=== PATIENT | male | born 1940 | race Caucasian/White ===

== ENCOUNTER 2016-06-08 12:09 | Emergency (ER) | payer OTHER ==
[~2016-06-08] VITALS: Ht 177.8 cm; Wt 106.1 kg
[~2016-06-08 12:09] MED LIST: ALBUTEROL0.09 MG/A1 INH; AMLODIPINE BESY10 M1 PO; ATENOLOL100 M1 PO; B-12500 MC1 PO; BENADRYL ALLERG25 MG PO; CHILDREN'S ASPI81 M1 PO; DUONEB 3 MG/3 ML3 ML INH; FOLIC ACID0.4 MG PO; KEFLEX500 MG PO; LIPITOR20 M2 PO; LISINOPRIL40 M1 PO; PEPCID 20MG TAB20 MG PO; PEPCID20 MG PO; PREDNICOT20 MG PO; PREDNISONE 10MG10 M1 PO; PREDNISONE 20MG20 MG PO; PREDNISONE50 MG PO; PYRIDOXINE HCL100 M1 PO; ROBITUSSIN W/CO10 ML PO; TESSALON PERLE100 MG PO; ZITHROMAX Z-PA250 M1 PO
--- NOTE | 2016-06-08 12:31 | ED GI/GU/ABDOMINAL COMPLAINT ---
History of Present Illness General Chief Complaint: Abdominal Pain/Flank Pain Stated Complaint: MID ABD PAIN Source: patient, old records Exam Limitations: no limitations Allergies Coded Allergies: NO KNOWN ALLERGIES (09/11/13) Reconcile Medications Albuterol Sulfate (Proair Hfa) 90 MCG HFA.AER.AD 2 PUF INH Q4-6 PRN PRN COPD (Reported) Amlodipine Besylate 10 MG TABLET 1 TAB PO DAILY HEART (Reported) Aspirin (Children's Aspirin) 81 MG TAB.CHEW 2 TAB PO DAILY HEART HEALTH ( Reported) Atenolol 100 MG TABLET 1 TAB PO DAILY HEART (Reported) Atorvastatin Calcium (Lipitor) 20 MG TABLET 1 TAB PO DAILY CHOLESTEROL ( Reported) Budesonide/Formoterol Fumarate (Symbicort 80-4.5 Mcg Inhaler) 80 MCG-4.5 MCG/ ACTUATION HFA.AER.AD 2 PUF INH BID BREATHING PROBLEMS (Reported) Cyanocobalamin (Vitamin B-12) (B-12) 500 MCG TABLET 1 TAB PO DAILY SUPPLEMENT (Reported) Doxazosin Mesylate 1 MG TABLET 1 TAB PO DAILY UNKNOWN (Reported) Famotidine (Pepcid) 20 MG TABLET 1 TAB PO DAILY GASTRITIS Ipratropium/Albuterol Sulfate (Iprat-Albut 0.5-3(2.5) MG/3 Ml) 0.5 MG-3 MG (2.5 MG BASE)/3 ML AMPUL.NEB 1 VIAL INH Q6-PRN PRN COPD (Reported) Lisinopril 40 MG TABLET 1 TAB PO DAILY HEART (Reported) Pyridoxine HCl 100 MG TABLET 1 TAB PO DAILY SUPPLEMENT (Reported) Triage Note: PT TO ED C/O BURNING PAIN TO ABD X A FEW DAYS. DENIES N/V/D. PT STATES HE MADE HIMSELF VOMIT. DENIES S/S. POOR PO INTAKE. Triage Nurses Notes Reviewed? yes Onset: Abrupt Duration: day(s): (4), constant, waxing and waning Timing: recent history Quality/Severity: aching, burning Severity Numbers: 5 Location: epigastric Radiation: no radiation Activities at Onset: none Prior Abdominal Problems: similar symptoms Modifying Factors: Worsens With: eating. Associated Symptoms: DENIES HPI: 75-year-old male with history of COPD coronary artery disease CABG presents to emergency room complaining of 4 day history of epigastric nonradiating abdominal pain described as burning that was gradual onset and has been constant since. He reports to a poor appetite since the symptoms began and he states that he had a slice of pizza last night which made his pain worse and he forced himself to throw up. He denies any otherwise nausea vomiting or change in his bowel movements no black or bloody stools. He reports he's had a history of similar episodes in the past at which time his primary care physician told him to limit fatty spicy greasy foods and soda intake which she did and the symptoms resolved. The patient quit smoking one year ago, he denies alcohol or drug use no chest pain shortness of breath area did the patient is not on home O2 he denies cough congestion fever chills he is not on prednisone currently. No sick contacts (BARRETT CAGLE) Vital Signs & Intake/Output Vital Signs & Intake/Output Vital Signs Date Time Temp Pulse Resp B/P Pulse O2 O2 Flow FiO2 Ox Delivery Rate 06/08 1415 55 18 130/63 92 Room Air 06/08 1340 98 Room Air 06/08 1215 96.9 61 20 128/77 96 Room Air Past History Travel History Traveled to [place] past 21 day No Medical History Any Pertinent Medical History? see below for history Cardiovascular: CAD, hypertension, hyperlipidemia Respiratory: COPD Surgical History Surgical History: CABG, hernia repair-inguinal Psychosocial History What is your primary language Montserratian Tobacco Use: Quit >30 days ago ETOH Use: denies use Illicit Drug Use: denies illicit drug use Family History Hx Contributory? No (BARRETT CAGLE) Review of Systems Review of Systems Constitutional: Reports: see HPI. All Other Systems: Reviewed and Negative Comments Review of systems: See HPI, All other systems negative. Constitutional, no chills no fever, no malaise HEENT:no sore throat no congestion, no ear pain Cardiovascular: No chest pain , no palpitation , Skin, no jaundice no rashes, no change in skin Respiratory: No dyspnea no cough no sputum no hemoptysis GI: No nausea no vomiting, no diarrhea, no bloating/constipation : No dysuria No hematuria, no frequency, no discharge Muscle skeletal: No joint pain, no joint swelling, no back pain, no neck pain, Neurologic: No numbness no headache Psych: No stress Heme/endocrine: No bruising no bleeding Immunology: No lymphadenopathy (BARRETT CAGLE) Physical Exam Physical Exam General Appearance: well developed/nourished, alert, awake Gastrointestinal: soft, non-tender Comments: Well-developed well-nourished person in no acute distress HEENT: Normal EENT exam; PERRL, EOMI. HEAD is atraumatic. moist mucous membranes. Neck: Supple, normal range of motion Back: Nontender, no CVA tenderness. Full range of motion Cardiovascular: Regular rate and rhythms no murmurs rubs or gallops, normal JVP Respiratory: Chest nontender.There were no bony deformities, no asymmetry. No respiratory distress. Patient speaking in full complete sentences. Breath sounds clear to auscultation bilaterally: NO W/R/R Abdomen: Soft, tenderness to palpation of the epigastrium, there is negative Santana sign no right upper quadrant tenderness nondistended, no appreciable organomegaly. Normal bowel sounds. No rebound/guarding, No appreciable enlargement of the abdominal aorta, No ascites. Extremity: No edema, full range of motion of extremities Neuro: Alert oriented x3, motor sensory normal, There were no obvious focal neurologic abnormalities. Skin: No appreciable rash on exposed skin, skin is warm and dry. No jaundice Psych: Mood and affect is normal, memory and judgment is normal. Core Measures ACS in differential dx? Yes Severe Sepsis Present: No Septic Shock Present: No (PAULINE PARISI,BARRETT) Progress Differential Diagnosis: AAA, AMI, appendicitis, bowel obstruction, colon cancer, cholecystitis, diverticulitis, gastritis, hepatitis, hernia, ischemic bowel, inflamm bowel dis, pancreatitis, peptic ulcer, PUD/GERD, perforated viscous, SBO Diagnostic Imaging: Viewed by Me: CT Scan. Discussed w/RAD: CT Scan. Radiology Impression: PATIENT: LUL NORMAN PRESENT AGE: 75 PATIENT ACCOUNT NO: [id number] : 41 LOCATION: [facility] ORDERING PHYSICIAN: BARRETT PARISI SERVICE DATE: 06/08/16 EXAM TYPE: CAT - CT ABD & PELVIS W/O IV CONTRAS EXAMINATION: CT ABDOMEN AND PELVIS WITHOUT CONTRAST CLINICAL INFORMATION: 75-year-old male with epigastric abdominal pain. Chronic renal disease. Evaluate pancreatitis and cholelithiasis. COMPARISON: Renal ultrasound, 03/10/2016. TECHNIQUE: Multidetector volumetric imaging was performed from the superior aspect of the liver through the pubic symphysis. Sagittal and coronal reformatted images were obtained on the technologist's workstation. DLP: 821 mGy-cm FINDINGS: LUNG BASES: No acute findings within the lung bases. Coronary arteries are calcified. No pericardial or pleural effusion. There is a small sliding-type hiatal hernia. LIVER, GALLBLADDER, AND BILIARY TREE: The liver is normal in size, shape, and attenuation. No focal hepatic lesion or biliary ductal dilatation. The gallbladder is physiologically distended and probably has a small, 3 mm calculus (image 213, series 3). No gallbladder wall edema or pericholecystic inflammatory change. PANCREAS: Unremarkable. SPLEEN: Unremarkable. ADRENAL GLANDS: Unremarkable. KIDNEYS AND URETERS: There is cystic renal disease. Innumerable bilateral cortical cysts are present and the majority of these appear hyperdense, consistent with proteinaceous and/or hemorrhagic cysts. Largest lesion of the right kidney measures up to 3 cm maximum dimension and the largest lesion of the left kidney measures up to 2.3 cm maximum dimension. On these noncontrast images, it is impossible to exclude an underlying solid renal mass. However, no solid renal masses were detected on the renal ultrasound exam of 03/10/2016. There is a 0.9 cm calyceal stone within the lower pole of the right kidney. Also, renal vascular calcifications are seen. No hydroureteronephrosis. BLADDER: Urinary bladder is nearly completely empty and, therefore, its wall is suboptimally evaluated. The bladder wall appears circumferentially thickened and measures up to approximately 1.4 cm thick -- possibly from detrusor muscle hypertrophy. No bladder diverticulum or calculus. GASTROINTESTINAL TRACT: Small sliding-type hiatal hernia. Bowel loops are normal in caliber. There are colonic diverticula, most numerous along the descending and sigmoid colon, without diverticulitis. The appendix is normal. No ascites or pneumoperitoneum. ABDOMINAL WALL: There is minimal protrusion of fat into the umbilicus. Also, there is minimal protrusion of fat into each inguinal canal. No significant findings in the abdominal wall. LYMPH NODES: No pathologic sized lymph nodes within the abdomen or pelvis. VASCULAR: Atherosclerotic calcification of the abdominal aorta - and its branches - without aneurysm. The calcified plaque of the proximal right renal artery apparently produce [id number] luminal stenosis. PELVIC VISCERA: Prostate gland is normal in size. No pelvic free fluid. OSSEOUS STRUCTURES: No suspicious lesions within the degenerated spine. At L5-S1, there is severe degenerative disc disease as manifest by marked loss of disc space, vacuum disc phenomenon, endplate sclerosis, disc bulge and osteophyte formation. These findings, combined with the facet hypertrophy, produce [id number] central canal and bilateral neural foraminal stenosis at L5-S1. IMPRESSION: 1. No imaging evidence of acute pancreatitis or cholecystitis. 2. Renal cystic disease. Innumerable bilateral cortical cysts, majority hyperdense, compatible with proteinaceous/hemorrhagic cysts. 3. Nonobstructing 0.9 cm calyceal stone within the lower pole of the right kidney. The urinary bladder is suboptimally evaluated due to lack of distention. No bladder calculi. 4. Colonic diverticulosis without diverticulitis. DICTATED BY: CRISPIN SARKAR MD DATE/TIME DICTATED:06/08/161344 LABORATORY MANAGER:ANDRESSA DATE/TIME TRANSCRIBED:1344 CONFIDENTIAL, DO NOT COPY WITHOUT APPROPRIATE AUTHORIZATION. < Electronically signed in Other Vendor System> SIGNED BY: CRISPIN SARKAR MD 06/08/16 1405 Initial ED EKG: normal intervals, normal p-waves, normal QRS complex, normal sinus rhythm (80) Prior EKG: unchanged Rhythm Strip: normal sinus rhythm (BARRETT CAGLE) Plan of Care: Orders Procedure Date/time Status Add-on Test (ER Only) 06/08 1314 Active Add-on Test (ER Only) 06/08 1243 Active TROPONIN LEVEL 06/08 1230 Complete LIPASE 06/08 1230 Complete LACTIC ACID 06/08 1230 Complete AMYLASE 06/08 1230 Complete EKG 06/08 1229 Active COMPREHENSIVE METABOLIC PANEL 06/08 1223 Complete CBC WITHOUT DIFFERENTIAL 06/08 1223 Complete Laboratory Tests 06/08/16 1230: Lactic Acid 1.7 06/08/16 1230: Anion Gap 11, Estimated GFR 31 L, BUN/Creatinine Ratio 10.0, Glucose 159 H, Calcium 11.6 H, Total Bilirubin 1.0, AST 27, ALT 45, Alkaline Phosphatase 69, Troponin I < 0.01, Total Protein 6.9, Albumin 4.2, Globulin 2.7, Albumin/ Globulin Ratio 1.6, Amylase 75, Lipase 101, CBC w Diff NO MAN DIFF REQ, RBC 3.94 L, MCV 87.8, MCH 30.4, RDW 14.0, MPV 7.4, Gran % 71.0, Lymphocytes % 17.6 L, Monocytes % 8.7, Eosinophils % 2.1, Basophils % 0.6, Absolute Granulocytes 5.2, Absolute Lymphocytes 1.3, Absolute Monocytes 0.6, Absolute Eosinophils 0.2, Absolute Basophils 0, PUBS MCHC 34.6 Labs ordered old records reviewed patient medicated with GI cocktail Pepcid 20 mg IV CAT scan ordered case discussed with Dr. Manzano Patient's creatinine is at baseline dating back to December 2015 06/08/2016 2:21:30 PM I discussed with the patient and his family at least all of his lab results including his elevated calcium creatinine and CAT scan results. The patient states that he is being seen by a air technician in [place] scheduled to see them on June 17 and that his elevated creatinine is known to the patient. I discussed with him at only need for bland diet brat diet clear liquids prescription for Pepcid provided as on repeat evaluation the patient reports the pain has completely resolved after being medicated with Pepcid and GI cocktail. Discussed with the patient need for well-balanced diet as well as the incidental findings on CT today, advised return anytime sooner with any concerns they feel comfortable this plan the patient was seen and evaluated by Dr. Manzano who agrees with plan (BARRETT CAGLE) Departure Departure Time of Disposition: 0 Disposition: HOME OR SELF CARE Condition: Stable Clinical Impression Primary Impression: Abdominal pain Secondary Impressions: Hypercalcemia, Renal cyst Referrals: FORREST CLEMENTE,EDUIN PURI MD,LYNN Romero (PCP/Family) Additional Instructions: Follow-up with your primary care physician tomorrow, as well as her kidney doctor as scheduled. Pepcid as directed this prescription was sent to your pharmacy-, bland diet, clear liquids advance as tolerated. No fatty spicy greasy foods limit caffeine intake, return anytime sooner with any concerns Follow-up with retail consultant Dr. demarco as discussed. Departure Forms: Customer Survey General Discharge Information Prescriptions: Current Visit Scripts Famotidine (Pepcid) 1 TAB PO DAILY #14 TAB (BARRETT CAGLE) PA/CARRIAGE DOGGER Co-Sign Statement Statement: ED Attending supervision documentation- [X] I saw and evaluated the patient. I have also reviewed all the pertinent lab results and diagnostic results. I agree with the findings and the plan of care as documented in the PA's/CARRIAGE DOGGER's documentation. [] I have reviewed the ED Record and agree with the PA's/CARRIAGE DOGGER's documentation. [] Additions or exceptions (if any) to the PAs/CARRIAGE DOGGER's note and plan are summarized below: [] (TAYLOR CLEMENTE,EMERSON Garcia)
[2016-06-08 12:40] LABS: ABSOLUTE BASOPHIL COUNT 0 /CUMM (0.0-0.2); ABSOLUTE EOSINOPHIL COUNT 0.2 /CUMM (0.0-0.7); ABSOLUTE GRANULOCYTE CT 5.2 /CUMM (1.4-6.5); ABSOLUTE LYMPH COUNT 1.3 /CUMM (1.2-3.4); ABSOLUTE MONOCYTE COUNT 0.6 /CUMM (0.10-0.60); BASOPHIL % 0.6 % (0.0-2.0); EOSINOPHIL % 2.1 % (0-5); HEMATOCRIT 34.6 % (42-52); MEAN CORPUSCULAR HGB 30.4 PG (27.0-31.0); MEAN CORPUSCULAR HGB CONC 34.6 G/DL (33.0-37.0); MEAN CORPUSCULAR VOLUME 87.8 FL (80.0-94.0); MEAN PLATELET VOLUME 7.4 FL (7.4-10.4); PLATELET COUNT 266 /CUMM (130-400); RED BLOOD CELL CT 3.94 /CUMM (4.70-6.10); WHITE BLOOD CELL COUNT 7.4 /CUMM (4.8-10.8)
[2016-06-08] MEDS ORDERED: DOXAZOSIN MESYLA1 M1 PO (13:55)
[2016-06-08] MEDS ORDERED: SYMBICORT 80-10.2 GM INH (13:59)
[2016-06-08] MEDS ORDERED: PROAIR HFA8.5 GM INH (14:00)
[2016-06-08] MEDS ORDERED: IPRAT-ALBUT 0.5-3 ML INH (14:01)
--- NOTE | 2016-06-08 14:05 | CT SCAN REPORT ---
EXAMINATION: CT ABDOMEN AND PELVIS WITHOUT CONTRAST CLINICAL INFORMATION: 75-year-old male with epigastric abdominal pain. Chronic renal disease. Evaluate pancreatitis and cholelithiasis. COMPARISON: Renal ultrasound, 03/10/2016. TECHNIQUE: Multidetector volumetric imaging was performed from the superior aspect of the liver through the pubic symphysis. Sagittal and coronal reformatted images were obtained on the technologist's workstation. DLP: 821 mGy-cm FINDINGS: LUNG BASES: No acute findings within the lung bases. Coronary arteries are calcified. No pericardial or pleural effusion. There is a small sliding-type hiatal hernia. LIVER, GALLBLADDER, AND BILIARY TREE: The liver is normal in size, shape, and attenuation. No focal hepatic lesion or biliary ductal dilatation. The gallbladder is physiologically distended and probably has a small, 3 mm calculus (image 213, series 3). No gallbladder wall edema or pericholecystic inflammatory change. PANCREAS: Unremarkable. SPLEEN: Unremarkable. ADRENAL GLANDS: Unremarkable. KIDNEYS AND URETERS: There is cystic renal disease. Innumerable bilateral cortical cysts are present and the majority of these appear hyperdense, consistent with proteinaceous and/or hemorrhagic cysts. Largest lesion of the right kidney measures up to 3 cm maximum dimension and the largest lesion of the left kidney measures up to 2.3 cm maximum dimension. On these noncontrast images, it is impossible to exclude an underlying solid renal mass. However, no solid renal masses were detected on the renal ultrasound exam of 03/10/2016. There is a 0.9 cm calyceal stone within the lower pole of the right kidney. Also, renal vascular calcifications are seen. No hydroureteronephrosis. BLADDER: Urinary bladder is nearly completely empty and, therefore, its wall is suboptimally evaluated. The bladder wall appears circumferentially thickened and measures up to approximately 1.4 cm thick -- possibly from detrusor muscle hypertrophy. No bladder diverticulum or calculus. GASTROINTESTINAL TRACT: Small sliding-type hiatal hernia. Bowel loops are normal in caliber. There are colonic diverticula, most numerous along the descending and sigmoid colon, without diverticulitis. The appendix is normal. No ascites or pneumoperitoneum. ABDOMINAL WALL: There is minimal protrusion of fat into the umbilicus. Also, there is minimal protrusion of fat into each inguinal canal. No significant findings in the abdominal wall. LYMPH NODES: No pathologic sized lymph nodes within the abdomen or pelvis. VASCULAR: Atherosclerotic calcification of the abdominal aorta - and its branches - without aneurysm. The calcified plaque of the proximal right renal artery apparently produce [id number] luminal stenosis. PELVIC VISCERA: Prostate gland is normal in size. No pelvic free fluid. OSSEOUS STRUCTURES: No suspicious lesions within the degenerated spine. At L5-S1, there is severe degenerative disc disease as manifest by marked loss of disc space, vacuum disc phenomenon, endplate sclerosis, disc bulge and osteophyte formation. These findings, combined with the facet hypertrophy, produce [id number] central canal and bilateral neural foraminal stenosis at L5-S1. IMPRESSION: 1. No imaging evidence of acute pancreatitis or cholecystitis. 2. Renal cystic disease. Innumerable bilateral cortical cysts, majority hyperdense, compatible with proteinaceous/hemorrhagic cysts. 3. Nonobstructing 0.9 cm calyceal stone within the lower pole of the right kidney. The urinary bladder is suboptimally evaluated due to lack of distention. No bladder calculi. 4. Colonic diverticulosis without diverticulitis.
[2016-06-08 14:15] VITALS: BP 130/63
[2016-06-08] MEDS ORDERED: PEPCID20 M1 PO (14:21)
== END 2016-06-08 14:45 ==
LOC: ERH 12:09
PROVIDERS: Physician Assistant Medical
DX: E83.52 Hypercalcemia (principal); N28.1 Cyst of kidney, acquired
CPT/HCPCS: 74176; 93005; 93010; 96361; 96374

== ENCOUNTER 2017-05-23 14:39 | Inpatient (IN) | payer OTHER ==
[~2017-05-23] VITALS: Ht 177.8 cm; Wt 99.8 kg
[~2017-05-23 14:39] MED LIST changes: +ALBUTEROL1.25 MG/1 INH/SOL; -ATENOLOL100 M1 PO; +CARDIZEM CD180 M1 PO; +DOXAZOSIN MESYLA1 M1 PO; +ELIQUIS5 M1 PO; +IPRAT-ALBUT 0.5-3 ML INH; +LEVAQUIN500 M1 PO; +PEPCID20 M1 PO; +PREDNISONE10 M2 PO; +PROAIR HFA8.5 GM INH; +SYMBICORT 80-10.2 GM INH; +TENORMIN50 M1 PO
--- NOTE | 2017-05-23 14:55 | ED GENERAL ADULT ---
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 HES HAVING A STROKE" PER DAUGHTER Source: patient, family, old records Exam Limitations: no limitations Vital Signs & Intake/Output Vital Signs & Intake/Output Vital Signs Date Time Temp Pulse Resp B/P B/P Pulse O2 O2 Flow FiO2 Mean Ox Delivery Rate 05/23 1452 97.5 78 18 131/81 93 Allergies Coded Allergies: NO KNOWN ALLERGIES (09/11/13) Reconcile Medications Albuterol Sulfate (Proair Hfa) 90 MCG HFA.AER.AD 2 PUF INH Q4-6 PRN PRN COPD (Reported) Amlodipine Besylate 10 MG TABLET 1 TAB PO DAILY HEART (Reported) Aspirin (Children's Aspirin) 81 MG TAB.CHEW 1 TAB PO DAILY HEART/BLOOD ( Reported) Atenolol (Tenormin) 50 MG TABLET 1 TAB PO BID HEART (Reported) Atorvastatin Calcium (Lipitor) 20 MG TABLET 1 TAB PO DAILY CHOLESTEROL ( Reported) Budesonide/Formoterol Fumarate (Symbicort 160-4.5 Mcg Inhaler) 160 MCG-4.5 MCG/ ACTUATION HFA.AER.AD 2 PUF INH BID RESP. (Reported) Diltiazem HCl (Cardizem Cd) 180 MG CAP.ER.24H 1 CAP PO DAILY heart rate . Doxazosin Mesylate 1 MG TABLET 1 TAB PO DAILY HTN (Reported) Famotidine (Pepcid) 20 MG TABLET 1 TAB PO DAILY GASTRITIS Ferrous Sulfate (Slow Fe) 142 MG (45 MG IRON) TABLET.ER 1 TAB PO DAILY SUPPLEMENT (Reported) Ipratropium/Albuterol Sulfate (Iprat-Albut 0.5-3(2.5) MG/3 Ml) 0.5 MG-3 MG (2.5 MG BASE)/3 ML AMPUL.NEB 1 VIAL INH Q6-PRN PRN COPD (Reported) Levalbuterol HCl (Xopenex) 0.63 MG/3 ML VIAL.NEB 1 Vial INH/ROSHAN TID RESP. ( Reported) Metoprolol Tartrate 50 MG TABLET 1 TAB PO BID HEART/BP (Reported) Nystatin 100,000 UNIT/GRAM CREAM..G. 1 MAGDALENA TOP BID GROIN (Reported) apply to affected area(s) Omeprazole 40 MG CAPSULE.DR 1 CAP PO DAILY GI (Reported) Triamcinolone Acetonide 0.1 % OINT...G. 1 MAGDALENA TOP BID GROIN (Reported) apply to affected area(s) Triage Note: PT COMES TO ED WITH NOT FEELING RIGHT. PER DGT PT HAD COLONOSCOPY AND ENDOSCOPY LAST WEEK AND SINCE WEDNESDAY HE STATES HE NEEDS TIME TO GET HIS THOUGHTS TOGETHER BEFORE HE SPEAKS. PT HAS NO WEAKNESS OR LIMB DEFICETS ABLE TO CHANGE INTO GOWN BY HIMSELF. PT IS ALERT AND ORIENTED AND KNOWS THAT HIS SPEECH IS SLOW AND HE NEEDS TO THINK LONG BEFORE HE CAN ANSWER QUESTIONS. PT IS A/O X3 Triage Nurses Notes Reviewed? yes HPI: Patient brought in by his family for evaluation of confusion. Symptoms started yesterday afternoon. Patient is usually alert and oriented however since yesterday afternoon he has to stop to think about what he wants to say. There is no slurring of his words more misuse of words however he feels that he cannot concentrate. Patient denies any weakness or Numbness. Patient had a recent colonoscopy and endoscopy and since then he has just had no appetite. Patient denies any fevers or chills. There is no coughing. He denies any headache or blurry vision. Past History Travel History Traveled to [place] past 21 day No Medical History Any Pertinent Medical History? see below for history Neurological: NONE EENT: NONE Cardiovascular: AFIB, CAD, hypertension, hyperlipidemia Respiratory: COPD Gastrointestinal: NONE Hepatic: NONE Renal: KIDNEY DISEASE Musculoskeletal: NONE Psychiatric: NONE Endocrine: NONE History of MRSA: No History of VRE: No History of CDIFF: No Surgical History Surgical History: CABG, hernia repair-inguinal Psychosocial History Who do you live with Spouse What is your primary language Welsh Tobacco Use: Quit >30 days ago ETOH Use: denies use Illicit Drug Use: denies illicit drug use Family History Family History, If Any: SISTER, , Age 60+; Cause: Lymphoma. SISTER, , Age 60+; Cause: Colon cancer. MOTHER, , Age 60+; Cause: Leukemia. FH: CHF (congestive heart failure) Hx Contributory? No Review of Systems Review of Systems Constitutional: Reports: no symptoms. EENTM: Reports: no symptoms. Respiratory: Reports: no symptoms. Cardiovascular: Reports: no symptoms. GI: Reports: see HPI. Genitourinary: Reports: no symptoms. Musculoskeletal: Reports: no symptoms. Skin: Reports: no symptoms. Neurological/Psychological: Reports: see HPI. Hematologic/Endocrine: Reports: no symptoms. Immunologic/Allergic: Reports: no symptoms. All Other Systems: Reviewed and Negative Physical Exam Physical Exam General Appearance: well developed/nourished, alert, awake, anxious, mild distress Head: atraumatic, normal appearance Eyes: Bilateral: PERRL, EOMI. Ears, Nose, Throat: normal pharynx, normal ENT inspection, hearing grossly normal Neck: normal inspection, supple, full range of motion Respiratory: normal breath sounds, chest non-tender, no respiratory distress, lungs clear Cardiovascular: regular rate/rhythm, normal peripheral pulses Gastrointestinal: normal bowel sounds, soft, non-tender, no organomegaly Back: normal inspection, normal range of motion Extremities: normal inspection, normal capillary refill, normal range of motion, no edema Neurologic/Psych: no motor/sensory deficits, awake, alert, oriented x 3, normal gait, normal mood/affect, HAS TO STOP TO THINK ABOUT UNANSWERED BEFORE ANSWERING BUT WHEN HE DOES HE HAS FLUID SPEECH. Skin: intact, normal color, warm/dry Lymphatic: no anterior cervical ashley Core Measures ACS in differential dx? No CVA/TIA Diagnosis: No Sepsis Present: No Sepsis Focused Exam Completed? No Progress Differential Diagnoses I considered the following diagnoses in my evaluation of the patient: [CVA, ELECTROLYTE ABNORMALITY, HYPERCARBIA, UTI] Plan of Care: Orders Procedure Date/time Status ARTERIAL BLOOD GAS (GEN) 05/23 1454 Active Telemetry/Real Estate Instructor 05/23 1454 Active URINE DRUGS OF ABUSE 05/23 1454 Active URINALYSIS 05/23 1454 Active TROPONIN LEVEL 05/23 1454 Complete ETHANOL 05/23 1454 Complete COMPREHENSIVE METABOLIC PANEL 05/23 1454 Complete CBC WITHOUT DIFFERENTIAL 05/23 1454 Complete ACETONE 05/23 1454 Complete EKG 05/23 1454 Active Current Medications Sig/Ramya Start time Last Medication Dose Stop Time Status Admin Sodium Chloride 1,000 ML BOLUS ONE 05/23 1630 AC 05/23 (Normal Saline 0.9%) 05/23 1729 1630 Sodium Chloride 1,000 ML BOLUS ONE 05/23 1630 AC (Normal Saline 0.9%) 05/23 1729 Sodium Chloride 1,000 ML BOLUS ONE 05/23 1630 AC (Normal Saline 0.9%) 05/23 1729 Laboratory Tests 05/23/17 1627: Methadone Screen Pending, Barbiturate Screen Pending, Ur Phencyclidine Scrn Pending, Amphetamines Screen Pending, U Benzodiazepines Scrn Pending, Urine Cocaine Screen Pending, Urine Cannabis Screen Pending, Urine Color Pending, Urine Clarity Pending, Urine pH Pending, Ur Specific [place] Pending, Urine Protein Pending, Urine Ketones Pending, Urine Nitrite Pending, Urine Bilirubin Pending, Urine Urobilinogen Pending, Ur Leukocyte Esterase Pending, Ur Microscopic Pending, Urine Hemoglobin Pending, Urine Glucose Pending 05/23/17 1512: Anion Gap 13, Estimated GFR 28 L, BUN/Creatinine Ratio 12.6, Glucose 819 *H, Calcium 8.9, Total Bilirubin 0.5, AST 14 L, ALT 29, Alkaline Phosphatase 151 H , Troponin I < 0.01, Total Protein 6.1 L, Albumin 3.6, Globulin 2.5, Albumin/ Globulin Ratio 1.4, CBC w Diff NO MAN DIFF REQ, RBC 3.95 L, MCV 83.1, MCH 26.9 L, MCHC 32.4 L, RDW 19.7 H, MPV 9.2, Gran % 70.5, Lymphocytes % 19.1 L, Monocytes % 6.9, Eosinophils % 3.1, Basophils % 0.4, Absolute Granulocytes 5.1, Absolute Lymphocytes 1.4, Absolute Monocytes 0.5, Absolute Eosinophils 0.2, Absolute Basophils 0, Serum Alcohol < 10.0, Acetone Level POSITIVE : UNDILUTED 05/23/17 1510: pH 7.40, pCO2 32 L, pO2 78 L, HCO3 19 L, ABG O2 Sat (Measured) 94.0 L, P-50 (Temp Corrected) N, Carboxyhemoglobin 0.5 L, O2 Concentration % .21, O2 Delivery Method RA, Phlebotomy Draw Site RIGHT RADIAL Diagnostic Imaging: Viewed by Me: Radiology Read, CT Scan. Discussed w/RAD: Radiology Read, CT Scan. Radiology Impression: PATIENT: LUL NORMAN PRESENT AGE: 76 PATIENT ACCOUNT NO: [id number] : 41 LOCATION: [facility] ORDERING PHYSICIAN: Anuj Muñoz MD SERVICE DATE: 05/23/17 EXAM TYPE: CAT - CT HEAD WO IV CONTRAST EXAMINATION: CT HEAD WITHOUT CONTRAST CLINICAL INFORMATION: Difficulty concentrating confusion. Assess for CVA. COMPARISON: None. TECHNIQUE: Contiguous axial imaging was performed from the skull base to vertex without intravenous administration of contrast. DLP: 608.81 mGy-cm FINDINGS: There is no evidence of acute intracranial hemorrhage or territorial infarction. No abnormal mass effect or midline shift is seen. Steiner to white matter differentiation is well preserved. No extra-axial fluid collections are identified. There is mild commensurate prominence of the ventricles and sulci consistent with mild diffuse volume loss. There are areas of low attenuation in the periventricular and subcortical white matter consistent with mild chronic microvascular ischemic changes. There have been bilateral lens extractions. There are no acute osseous findings. There are degenerative changes of the bilateral temporomandibular joints.. There are atheromatous calcifications of the cavernous internal carotid arteries bilaterally. The mastoid air cells are poorly pneumatized. There is fluid in the bilateral mastoid air cells and in the left middle ear cavity. IMPRESSION: 1. There are no acute bleeds or territorial infarcts. 2. There are is mild volume loss and there are sequelae of chronic microvascular ischemic disease. 3. There is fluid in the bilateral mastoid air cells and in the left middle ear cavity. DICTATED BY: Medhat Mortensen MD DATE/TIME DICTATED:05/23/171547 DECK MATE:ANDRESSA DATE/TIME TRANSCRIBED:1547 CONFIDENTIAL, DO NOT COPY WITHOUT APPROPRIATE AUTHORIZATION. < Electronically signed in Other Vendor System> SIGNED BY: Medhat Mortensen MD 1601 CXR Impression: PATIENT: LUL NORMAN PRESENT AGE: 76 PATIENT ACCOUNT NO: [id number] : 41 LOCATION: [facility] ORDERING PHYSICIAN: Anuj Muñoz MD SERVICE DATE: 05/23/179078 EXAM TYPE: RAD - XRY- PORTABLE CHEST XRAY EXAMINATION: XR PORTABLE CHEST CLINICAL INFORMATION: Shortness of breath. COMPARISON: 03/15/2017 TECHNIQUE: Portable frontal view of the chest was obtained. FINDINGS: Lungs are well expanded and clear. No pulmonary consolidation, interstitial infiltrate or pleural effusion. Cardiac silhouette is normal in size and sternotomy wires are intact. The hilar contours are normal. 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 IMPRESSION: No acute pulmonary disease. DICTATED BY: Steve Parada MD DATE/TIME DICTATED:05/23/171613 DECK MATE:ANDRESSA DATE/TIME TRANSCRIBED:05/23/171613 CONFIDENTIAL, DO NOT COPY WITHOUT APPROPRIATE AUTHORIZATION. <Electronically signed in Other Vendor System> SIGNED BY: Steve Parada MD 05/23/171618 Initial ED EKG: SR, T WAVE INVERSIONS ANTERIORLY, NO CHANGE FROM PRIOR Comments: Per his daughters he is having these had a borderline hemoglobin A1c. For the past few days he has only been drinking sugary juices after his colonoscopy and last night he had apple pie with basically. He has had a very high sugar content over the past few days. Departure Departure Disposition: STILL A PATIENT Condition: Stable Clinical Impression Primary Impression: Hyperglycemia Referrals: Duron Cory CLEMENTE (PCP/Family) Departure Forms: Customer Survey General Discharge Information Admission Note Spoke With: Niki Vivar MD Documentation of Exam: Documentation of any treatments & extenuating circumstances including Concerns Regarding Discharge (functional status, medication knowledge or non-compliance, living conditions, etc.) that warrant an admission rather than observation: [ Admission for hyperglycemia and pseudohyponatremia. Chronic kidney disease, endocrine consultation, nephrology consultation, IV fluids, sugar control, diabetic teaching] Critical Care Note Critical Care Note Critical Care Time: mins: (90 MIN)
[2017-05-23] MEDS ORDERED: METOPROLOL TART50 M1 PO (15:08)
[2017-05-23] MEDS ORDERED: SYMBICORT 16010.2 GM INH (15:09)
[2017-05-23] MEDS ORDERED: SLOW FE142 MG PO (15:09)
[2017-05-23] MEDS ORDERED: XOPENEX0.63 MG/1 INH/SOL (15:10)
[2017-05-23] MEDS ORDERED: TRIAMCINOLONE A15 G3 TOP (15:12)
[2017-05-23] MEDS ORDERED: OMEPRAZOLE40 M1 PO (15:12)
[2017-05-23] MEDS ORDERED: NYSTATIN15 G1 TOP (15:12)
[2017-05-23 15:31] LABS: ABSOLUTE BASOPHIL COUNT 0 /CUMM (0.0-0.2); ABSOLUTE EOSINOPHIL COUNT 0.2 /CUMM (0.0-0.7); ABSOLUTE GRANULOCYTE CT 5.1 /CUMM (1.4-6.5); ABSOLUTE LYMPH COUNT 1.4 /CUMM (1.2-3.4); ABSOLUTE MONOCYTE COUNT 0.5 /CUMM (0.10-0.60); BASOPHIL % 0.4 % (0.0-2.0); EOSINOPHIL % 3.1 % (0-5); GRANULOCYTE % 70.5 % (42.2-75.2); HEMATOCRIT 32.8 % (42-52); MEAN CORPUSCULAR HGB 26.9 PG (27.0-31.0); MEAN CORPUSCULAR HGB CONC 32.4 G/DL (33.0-37.0); MEAN CORPUSCULAR VOLUME 83.1 FL (80.0-94.0); MEAN PLATELET VOLUME 9.2 FL (7.4-10.4); PLATELET COUNT 264 /CUMM (130-400); RBC DISTRIBUTION WIDTH 19.7 % (11.5-14.5); RED BLOOD CELL CT 3.95 /CUMM (4.70-6.10); WHITE BLOOD CELL COUNT 7.2 /CUMM (4.8-10.8)
--- NOTE | 2017-05-23 16:01 | CT SCAN REPORT ---
EXAMINATION: CT HEAD WITHOUT CONTRAST CLINICAL INFORMATION: Difficulty concentrating confusion. Assess for CVA. COMPARISON: None. TECHNIQUE: Contiguous axial imaging was performed from the skull base to vertex without intravenous administration of contrast. DLP: 608.81 mGy-cm FINDINGS: There is no evidence of acute intracranial hemorrhage or territorial infarction. No abnormal mass effect or midline shift is seen. Steiner to white matter differentiation is well preserved. No extra-axial fluid collections are identified. There is mild commensurate prominence of the ventricles and sulci consistent with mild diffuse volume loss. There are areas of low attenuation in the periventricular and subcortical white matter consistent with mild chronic microvascular ischemic changes. There have been bilateral lens extractions. There are no acute osseous findings. There are degenerative changes of the bilateral temporomandibular joints.. There are atheromatous calcifications of the cavernous internal carotid arteries bilaterally. The mastoid air cells are poorly pneumatized. There is fluid in the bilateral mastoid air cells and in the left middle ear cavity. IMPRESSION: 1. There are no acute bleeds or territorial infarcts. 2. There are is mild volume loss and there are sequelae of chronic microvascular ischemic disease. 3. There is fluid in the bilateral mastoid air cells and in the left middle ear cavity.
--- NOTE | 2017-05-23 16:19 | RADIOLOGY REPORT ---
EXAMINATION: XR PORTABLE CHEST CLINICAL INFORMATION: Shortness of breath. COMPARISON: 03/15/2017 TECHNIQUE: Portable frontal view of the chest was obtained. FINDINGS: Lungs are well expanded and clear. No pulmonary consolidation, interstitial infiltrate or pleural effusion. Cardiac silhouette is normal in size and sternotomy wires are intact. The hilar contours are normal. 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 IMPRESSION: No acute pulmonary disease.
--- NOTE | 2017-05-23 17:10 | History & Physical ---
Magda Tinajero 05/23/17 7528: General Information and HPI MD Statement: I have seen and personally examined LUL NORMAN and documented this H&P. Source of Information: patient Exam Limitations: no limitations History of Present Illness: This is a 76-year-old gentleman with past medical history significant for CAD status post CABG for 20 years ago, COPD not on home O2 or chronic steroid, HTN, HLD, BPH, prediabetes was brought to the hospital for further evaluation of change in mental status. Per patient, since yesterday's afternoon, he has been feeling weaker and also had to think about what he wants to say. He denies having facial droop, slurred speech, paresthesia, weakness in any of his extremities, loss of consciousness. The patient has been having polydipsia, polyuria and generalized weakness for the past month which have been worsening for the past 2 weeks. He denies any change in his vision including blurred vision, dizziness, lightheadedness. He states that since his colonoscopy on Wednesday, he has been drinking sugar- containing liquids including tomato juice, apple juice, lemonade and OJ. He denies having any nausea, vomiting however does report decrease in his appetite. Also, he states that he has been experiencing "pulse"sensation in his right ear with decreased hearing. He reports having history of "fluids in his ears"in past and had "tube in his left ear" at some point. He follows with Dr. Cuba as outpatient. The patient denies having any fever/chills, sore throat, ear pain, or tinnitus. Furthermore, he reports feeling wheezy and having productive cough at baseline. Receives nebulizer treatment every 6 hours at home. He has not noticed any worsening of shortness of breath, or worsening of cough recently. Allergies/Medications Allergies: Coded Allergies: NO KNOWN ALLERGIES (09/11/13) Home Med list Albuterol Sulfate (Proair Hfa) 90 MCG HFA.AER.AD 2 PUF INH Q4-6 PRN PRN COPD (Reported) Amlodipine Besylate 10 MG TABLET 1 TAB PO DAILY HEART (Reported) Aspirin (Children's Aspirin) 81 MG TAB.CHEW 1 TAB PO DAILY HEART/BLOOD ( Reported) Atorvastatin Calcium (Lipitor) 20 MG TABLET 1 TAB PO DAILY CHOLESTEROL ( Reported) Budesonide/Formoterol Fumarate (Symbicort 160-4.5 Mcg Inhaler) 160 MCG-4.5 MCG/ ACTUATION HFA.AER.AD 2 PUF INH BID RESP. (Reported) Diltiazem HCl (Cardizem Cd) 180 MG CAP.ER.24H 1 CAP PO DAILY heart rate . Doxazosin Mesylate 1 MG TABLET 1 TAB PO DAILY HTN (Reported) Famotidine (Pepcid) 20 MG TABLET 1 TAB PO DAILY GASTRITIS Ferrous Sulfate (Slow Fe) 142 MG (45 MG IRON) TABLET.ER 1 TAB PO DAILY SUPPLEMENT (Reported) Ipratropium/Albuterol Sulfate (Iprat-Albut 0.5-3(2.5) MG/3 Ml) 0.5 MG-3 MG (2.5 MG BASE)/3 ML AMPUL.NEB 1 VIAL INH Q6-PRN PRN COPD (Reported) Levalbuterol HCl (Xopenex) 0.63 MG/3 ML VIAL.NEB 1 Vial INH/ROSHAN TID RESP. ( Reported) Metoprolol Tartrate 50 MG TABLET 1 TAB PO BID HEART/BP (Reported) Nystatin 100,000 UNIT/GRAM CREAM..G. 1 MAGDALENA TOP BID GROIN (Reported) apply to affected area(s) Omeprazole 40 MG CAPSULE.DR 1 CAP PO DAILY GI (Reported) Triamcinolone Acetonide 0.1 % OINT...G. 1 MAGDALENA TOP BID GROIN (Reported) apply to affected area(s) Past History Travel History Traveled to [place] past 21 day No Medical History Neurological: NONE EENT: NONE Cardiovascular: AFIB, CAD, hypertension, hyperlipidemia Respiratory: COPD Gastrointestinal: NONE Hepatic: NONE Renal: KIDNEY DISEASE Musculoskeletal: NONE Psychiatric: NONE Endocrine: NONE History of MRSA: No History of VRE: No History of CDIFF: No Surgical History Surgical History: CABG, hernia repair-inguinal Past Family/Social History Family History Relations & Conditions if any SISTER, , Age 60+; Cause: Lymphoma. SISTER, , Age 60+; Cause: Colon cancer. MOTHER, , Age 60+; Cause: Leukemia. FH: CHF (congestive heart failure) Psychosocial History ETOH Use: denies use Illicit Drug Use: denies illicit drug use Living Will? no Functional Ability ADLs Independent: dressing, eating, toileting, bathing. Ambulation: independent IADLs Independent: shopping, housework, finances, food prep, telephone, transportation , medication admin. Review of Systems Review of Systems Constitutional: Reports: see HPI, weakness. Denies: chills, diaphoresis, fever, malaise, unexplained weight loss. EENTM: Denies: blurred vision, double vision, visual changes, eye pain, eye drainage, eye tearing, icterus, ear discharge. Cardiovascular: Denies: chest pain, edema, orthopena, palpitations, peripheral edema, syncope. Respiratory: Reports: cough, short of breath, sputum production, wheezing. Denies: hemoptysis, orthopnea, stridor. GI: Denies: abdominal pain, bloating, constipation, diarrhea, distention, bowel incontinence, melena, nausea, bloody stool, changes in stool, vomiting, steatorrhea. Genitourinary: Reports: frequency. Denies: discharge, dysuria, hematuria, hesitation, nocturia , pain, urgency. Musculoskeletal: Reports: no symptoms. Skin: Reports: no symptoms. Neurological/Psychological: Denies: anxiety, ataxia, cognitive dysfunction, confusion, headache, numbness, paresthesia, pre-existing deficit, tingling, tremors. Hematologic/Endocrine: Reports: no symptoms. Immunologic/Allergic: Reports: no symptoms. Exam & Diagnostic Data Last 24 Hrs of Vital Signs/I&O Vital Signs Date Time Temp Pulse Resp B/P B/P Pulse O2 O2 Flow FiO2 Mean Ox Delivery Rate 05/23 1656 98.0 76 18 142/89 96 Room Air Room Air 05/23 1452 97.5 78 18 131/81 93 Intake & Output 05/23 1600 05/23 0800 05/23 0000 Intake Total Output Total Balance Patient 220 lb Weight Weight Reported by Patient Measurement Method Physical Exam General Appearance Alert, Oriented X3, Cooperative, No Acute Distress Skin No Rashes, No Breakdown, No Significant Lesion Skin Temp/Moisture Exam: Warm/Dry Sepsis Skin Exam (color): Normal for Ethnicity HEENT Atraumatic, PERRLA, EOMI, Mucous Membr. moist/pink, no tenderness on palpation on mastoid process, left tympanic membrane bulging, right tympanic membrane unremarkable Neck Supple, No JVD, No thryomegaly, +2 Carotid Pulse wo Bruit, No LAD Lymphatic Cervical nl Cardiovascular Regular Rate, Normal S1, Normal S2, No Murmurs, Gallops, Rubs Lungs expiratory wheezes Abdomen No Tenderness, No Hepatospenomegaly, No Masses, distended Neurological Normal Speech, Strength at 5/5 X4 Ext, Normal Tone, Sensation Intact, Cranial Nerves 3-12 NL, Reflexes 2+, Bedside swallow eval wnl Extremities No Clubbing, No Cyanosis, No Edema, Normal Pulses, No Tenderness/ Swelling Vascular Normal Pulses, Pulses Symmetrical Last 24 Hrs of Labs/Darnell: Laboratory Tests 05/23/17 1627: Urine Opiates Screen < 100.00, Methadone Screen < 40, Barbiturate Screen < 60, Ur Phencyclidine Scrn < 6.00, Amphetamines Screen < 100, U Benzodiazepines Scrn < 85, Urine Cocaine Screen < 50, Urine Cannabis Screen < 5.00, Urine Color YEL, Urine Clarity CLEAR, Urine pH 6.0, Ur Specific [place] 1.010, Urine Protein NEG, Urine Ketones NEG, Urine Nitrite NEG, Urine Bilirubin NEG, Urine Urobilinogen 0.2, Ur Leukocyte Esterase NEG, Ur Microscopic EXAM NOT REQUIRED, Urine Hemoglobin NEG, Urine Glucose >=1000 H 05/23/17 1512: Anion Gap 13, Estimated GFR 28 L, BUN/Creatinine Ratio 12.6, Glucose 819 *H, Calcium 8.9, Total Bilirubin 0.5, AST 14 L, ALT 29, Alkaline Phosphatase 151 H , Troponin I < 0.01, Total Protein 6.1 L, Albumin 3.6, Globulin 2.5, Albumin/ Globulin Ratio 1.4, CBC w Diff NO MAN DIFF REQ, RBC 3.95 L, MCV 83.1, MCH 26.9 L, MCHC 32.4 L, RDW 19.7 H, MPV 9.2, Gran % 70.5, Lymphocytes % 19.1 L, Monocytes % 6.9, Eosinophils % 3.1, Basophils % 0.4, Absolute Granulocytes 5.1, Absolute Lymphocytes 1.4, Absolute Monocytes 0.5, Absolute Eosinophils 0.2, Absolute Basophils 0, Serum Alcohol < 10.0, Acetone Level POSITIVE : UNDILUTED 05/23/17 1510: pH 7.40, pCO2 32 L, pO2 78 L, HCO3 19 L, ABG O2 Sat (Measured) 94.0 L, P-50 (Temp Corrected) N, Carboxyhemoglobin 0.5 L, O2 Concentration % .21, O2 Delivery Method RA, Phlebotomy Draw Site RIGHT RADIAL Diagnostic Data EKG Results Sinus rhythm, rate 67, mild ST depression noted in V2 which is also present in the prior EKG on 03/15/2017. No significant ST-T wave abnormalities. CXR Results No acute pulmonary disease. Other Results Head CT: 1. There are no acute bleeds or territorial infarcts. 2. There are is mild volume loss and there are sequelae of chronic microvascular ischemic disease. 3. There is fluid in the bilateral mastoid air cells and in the left middle ear cavity. Assessment/Plan Assessment: This is a 76-year-old gentleman with past medical history significant for CAD status post CABG for 20 years ago, COPD not on home O2 or chronic steroid, HTN, HLD, BPH, prediabetes was brought to the hospital for further evaluation of change in mental status. In the ED was noted to be hyperglycemic to 819, with normal anion gap. Also head CT showing fluid in the bilateral mastoid air cells and in the left middle ear cavity. Assessment: #Hyperglycemia #Possible mastoiditis #H/o COPD #History of CKD Plan: * Insulin drip per endocrinology * Monitor in the ICU while receiving Ins drip * Gentle IV hydration * Neuro checks every shift * Fingersticks every 1 hour * Monitor electrolytes including magnesium, potassium and sodium while on insulin drip * Please follow endocrinology recommendations regarding when to start subcutaneous insulin. * Will check hemoglobin A1c and TFT. Last hemoglobin 7 on 01/22/2017. * Diabetic diet with sodium restriction. * Will start Zosyn for mastoiditis * ENT consult in the morning * Renal ultrasound * Consider renal consult for CK D * Will continue home medications * GI prophylaxis * DVT prophylaxis with subcutaneous heparin * Patient is full code As Ranked By This Provider Problem List: 1. Hyperglycemia 2. Mastoiditis Core Measures/Misc (12/20) Acute Coronary Syndrome ACS Diagnosis: No Congestive Heart Failure Congestive Heart Failure Diagnosis No Cerebrovascular Accident CVA/TIA Diagnosis: No VTE (View Protocol) VTE Risk Factors Age>40 No Mechanical VTE Prophylaxis d/t N/A MechProphylax Ordered No VTE Pharm Prophylaxis d/t NA PharmProphylax ordered Sepsis (View protocol) Sepsis Present: No Niki Vivar MD 05/23/171936: Attending MD Review Statement Attending Statement Attending MD Statement: examined this patient, discuss w/resident/PA/MEMBERSHIP SECRETARY, agreed w/resident/PA/MEMBERSHIP SECRETARY, reviewed EMR data (avail) Attending Assessment/Plan: 76M PMH CAD status post CABG for 20 years ago, COPD not on home O2 or chronic steroid, HTN, HLD, BPH presenting with confusion and altered mental status for one day. Underwent colonoscopy and endoscopy for anemia several days ago and has only been drinking sugary flavored drinks since, except for ice cream and apple pie last night. He noted today to his daughters that he was not thinking clearly, and was struggling to find words. His fingerstick at home was >500. On arrival to the ED, the patient was confused, slurring his words, and had word finding difficulties. His glucose level was 880, with positive ketones and a normal anion gap. Normal saline was started in the ED. Of note, CT head was done which showed bilateral mastoiditis, with bulging of the left EM on exam. 1. HHS, with type 2 hyperglycemia 2. Metabolic encephalopathy 3. Bilateral mastoiditis Plan - Admit to ICU - Gentle hydration following third liter of saline - Insulin drip - Follow endocrine recommendations for transition to long acting insulin - Fingerstick q1h - BEP, Mg q2h until off insulin drip - Start Zosyn for mastoiditis given hyperglycemic state - Neuro checks qshift - Renal ultrasound, consider nephrology consult for CKD - If no improvement will consider MRI head or LP - Continue home medications - DVT PPx
--- NOTE | 2017-05-23 18:35 | Cons- Endocrinology ---
General Information and HPI Consulting Request Date of Consult: 05/23/17 Requested By: medical team Reason for Consult: hyperglycemic hyperosmolar states Source of Information: patient, old records Exam Limitations: no limitations History of Present Illness: This 76-year-old male has a past history of diabetes. He states he was told about prediabetes or being on the verge of diabetes. He had a colonoscopy recently. He noted for the past several days loss of appetite increased thirst and increased urination. He was drinking lots of fluids which contain large amount of glucose such as regular soda, and juices. He also lost about 10-15 pounds of weight. His family noticed that he had trouble finding words and expressing himself.. The patient has a history of chronic kidney disease. Review of the studies and the [facility] computer reveals he has multiple cysts that are proteinaceous or hemorrhagic. He has not seen a kidney doctor in the past. He was scheduled to see one but the appointment got canceled due to weather and was not rescheduled. Patient had an admission to [facility] a few months ago for atrial fibrillation and shortness of breath. Apparently he converted spontaneously to sinus rhythm. He also has a history of COPD. Allergies/Medications Allergies: Coded Allergies: NO KNOWN ALLERGIES (NONE 05/24/17) Home Med List: Albuterol Sulfate (Proair Hfa) 90 MCG HFA.AER.AD 2 PUF INH Q4-6 PRN PRN COPD (Reported) Amlodipine Besylate 10 MG TABLET 1 TAB PO DAILY HEART (Reported) Amoxicillin/Clavulanate Potass (Amox-Clav 875-125 MG Tablet) 875 MG-125 MG TABLET 875 MG PO Q12 ear infection Aspirin (Children's Aspirin) 81 MG TAB.CHEW 1 TAB PO DAILY HEART/BLOOD ( Reported) Atorvastatin Calcium (Lipitor) 20 MG TABLET 1 TAB PO DAILY CHOLESTEROL ( Reported) Budesonide/Formoterol Fumarate (Symbicort 160-4.5 Mcg Inhaler) 160 MCG-4.5 MCG/ ACTUATION HFA.AER.AD 2 PUF INH BID RESP. (Reported) Diltiazem HCl (Cardizem Cd) 180 MG CAP.ER.24H 1 CAP PO DAILY heart rate . Doxazosin Mesylate 1 MG TABLET 1 TAB PO DAILY HTN (Reported) Famotidine (Pepcid) 20 MG TABLET 1 TAB PO DAILY GASTRITIS Ferrous Sulfate (Slow Fe) 142 MG (45 MG IRON) TABLET.ER 1 TAB PO DAILY SUPPLEMENT (Reported) Insulin Aspart (Novolog) 100 UNIT/ML VIAL 0 UNITS SC TIDAC DIABETES Sliding scale NovoLog before meals: 80-150 mg/dl: give 6 units 151-200 mg/dl: give 8 units 201-250 mg/dl: give 9 units 251-300 mg/dl: give 10 units 301-350 mg/dl: give 11 units 351-400 mg/dl: give 12 units and call PCP Insulin Aspart (Novolog) 100 UNIT/ML VIAL 0 UNITS SC AT BEDTIME DIABETES Bedtime sliding scale: less than 250 mg/dl: give no insulin 251-300 mg/dl: give 2 units 301-350 mg/dl: give 3 units 351-400 mg/dl: give 4 units Insulin Detemir (Levemir) 100 UNIT/ML VIAL 14 UNITS SC BID DIABETES Ipratropium/Albuterol Sulfate (Iprat-Albut 0.5-3(2.5) MG/3 Ml) 0.5 MG-3 MG (2.5 MG BASE)/3 ML AMPUL.NEB 1 VIAL INH Q6-PRN PRN COPD (Reported) Levalbuterol HCl (Xopenex) 0.63 MG/3 ML VIAL.NEB 1 Vial INH/ROSHAN TID RESP. ( Reported) Metoprolol Tartrate 50 MG TABLET 1 TAB PO BID HEART/BP (Reported) Nystatin 100,000 UNIT/GRAM CREAM..G. 1 MAGDALENA TOP BID GROIN (Reported) apply to affected area(s) Omeprazole 40 MG CAPSULE.DR 1 CAP PO DAILY GI (Reported) Triamcinolone Acetonide 0.1 % OINT...G. 1 MAGDALENA TOP BID GROIN (Reported) apply to affected area(s) Current Medications: Current Medications Sig/Ramya Start time Last Medication Dose Route Stop Time Status Admin Imipenem/Cilastatin 250 MG Q6 05/23 1833 AC Sodium IV Sodium Chloride 100 ML Insulin Human Regular 100 UNIT Q24H 05/23 1830 AC 05/23 Sodium Chloride 100 ML IV 1844 Insulin Human Regular 10 UNITS ONCE ONE 05/23 1700 DC 05/23 IV 05/23 1701 1736 Insulin Human Regular 100 UNIT ONCE ONE 05/23 1700 DC Sodium Chloride 100 ML IV 05/23 1701 Sodium Chloride 1,000 ML Q10H 05/23 1830 AC IV Sodium Chloride 1,000 ML BOLUS ONE 05/23 1630 DC 05/23 IV 05/23 1729 1630 Sodium Chloride 1,000 ML BOLUS ONE 05/23 1630 DC / IV 05/23 1729 1652 Sodium Chloride 1,000 ML BOLUS ONE 05/23 1630 DC 05/23 IV 05/23 1729 1754 Review of Systems Review of Systems Constitutional: Denies: chills, fever. Cardiovascular: Denies: chest pain. Respiratory: Denies: cough. GI: Denies: abdominal pain, nausea. Neurological/Psychological: Reports: confusion, other (trouble finding words). Past History Travel History Traveled to [place] past 21 day No Medical History Neurological: NONE EENT: NONE Cardiovascular: AFIB, CAD, hypertension, hyperlipidemia Respiratory: COPD Gastrointestinal: NONE Hepatic: NONE Renal: KIDNEY DISEASE Musculoskeletal: NONE Psychiatric: NONE Endocrine: NONE Surgical History Surgical History: CABG, hernia repair-inguinal Family History Relations & Conditions If Any: SISTER, , Age 60+; Cause: Lymphoma. SISTER, , Age 60+; Cause: Colon cancer. MOTHER, , Age 60+; Cause: Leukemia. FH: CHF (congestive heart failure) Psychosocial History ETOH Use: denies use Illicit Drug Use: denies illicit drug use Living Will? no Functional Ability ADLs Independent: dressing, eating, toileting, bathing. Ambulation: independent IADLs Independent: shopping, housework, finances, food prep, telephone, transportation , medication admin. Exam & Diagnostic Data Last 24 Hrs of Vital Signs/I&O Vital Signs Date Time Temp Pulse Resp B/P B/P Pulse O2 O2 Flow FiO2 Mean Ox Delivery Rate 05/23 1656 98.0 76 18 142/89 96 Room Air Room Air 05/23 1452 97.5 78 18 131/81 93 Intake & Output 05/23 1600 05/23 0800 05/23 0000 Intake Total Output Total Balance Patient 220 lb Weight Weight Reported by Patient Measurement Method Vital Signs Date Time Temp Pulse Resp B/P B/P Pulse O2 O2 Flow FiO2 Mean Ox Delivery Rate 05/23 1656 98.0 76 18 142/89 96 Room Air Room Air 05/23 1452 97.5 78 18 131/81 93 Intake & Output 05/23 1600 05/23 0800 05/23 0000 Intake Total Output Total Balance Patient 220 lb Weight Weight Reported by Patient Measurement Method Physical Exam General Appearance: no apparent distress, alert, awake Head: normal appearance Eyes: Bilateral: normal appearance. Respiratory: normal breath sounds Cardiovascular: regular rate/rhythm Gastrointestinal: normal bowel sounds, soft Extremities: normal inspection Neurologic/Psych: awake, alert, oriented x 3 Skin: intact Labs/Darnell Results: Laboratory Tests 05/23 1627 Toxicology Urine Opiates Screen (>2000 NG/ML) < 100.00 Methadone Screen (>300 NG/ML) < 40 Barbiturate Screen (>200 NG/ML) < 60 Ur Phencyclidine Scrn (>25 NG/ML) < 6.00 Amphetamines Screen (>1000 NG/ML) < 100 U Benzodiazepines Scrn (>200 NG/ML) < 85 Urine Cocaine Screen (>300 NG/ML) < 50 Urine Cannabis Screen (>50 NG/ML) < 5.00 Urines Urine Color (YEL,AMB,STR) YEL Urine Clarity (CLEAR) CLEAR Urine pH (5.0 - 8.0) 6.0 Ur Specific [place] (1.001 - 1.035) 1.010 Urine Protein (NEG,<30 MG/DL) NEG Urine Ketones (NEG) NEG Urine Nitrite (NEG) NEG Urine Bilirubin (NEG) NEG Urine Urobilinogen (0.1 - 1.0 EU/dl) 0.2 Ur Leukocyte Esterase (NEG) NEG Ur Microscopic EXAM NOT REQUIRED Urine Hemoglobin (NEG) NEG Urine Glucose (N MG/DL) >=1000 H 05/23 05/23 1512 1510 Blood Gas pH (7.35 - 7.45 PH) 7.40 pCO2 (35 - 45 TORR) 32 L pO2 (80 - 100 TORR) 78 L HCO3 (21 - 28 MEQ/L) 19 L ABG O2 Sat (Measured) (>96.0 %) 94.0 L P-50 (Temp Corrected) N Carboxyhemoglobin (1.5 - 5.0 %) 0.5 L O2 Concentration % .21 O2 Delivery Method RA Chemistry Sodium (137 - 145 mmol/L) 127 L Potassium (3.5 - 5.1 mmol/L) 4.8 Chloride (98 - 107 mmol/L) 94 L Carbon Dioxide (22 - 30 mmol/L) 20 L Anion Gap (5 - 16) 13 BUN (9 - 20 mg/dL) 29 H Creatinine (0.7 - 1.2 mg/dL) 2.3 H Estimated GFR (>60 ml/min) 28 L BUN/Creatinine Ratio (7 - 25 %) 12.6 Glucose (65 - 99 mg/dL) 819 *H Calcium (8.4 - 10.2 mg/dL) 8.9 Total Bilirubin (0.2 - 1.3 mg/dL) 0.5 AST (17 - 59 U/L) 14 L ALT (21 - 72 U/L) 29 Alkaline Phosphatase (< 127 U/L) 151 H Troponin I (<0.11 ng/ml) < 0.01 Total Protein (6.3 - 8.2 g/dL) 6.1 L Albumin (3.5 - 5.0 g/dL) 3.6 Globulin (1.9 - 4.2 gm/dL) 2.5 Albumin/Globulin Ratio (1.1 - 2.2 %) 1.4 TSH (0.270 - 4.200 uIU/mL) Pending Hematology CBC w Diff NO MAN DIFF REQ WBC (4.8 - 10.8 /CUMM) 7.2 RBC (4.70 - 6.10 /CUMM) 3.95 L Hgb (14.0 - 18.0 G/DL) 10.6 L Hct (42 - 52 %) 32.8 L MCV (80.0 - 94.0 FL) 83.1 MCH (27.0 - 31.0 PG) 26.9 L MCHC (33.0 - 37.0 G/DL) 32.4 L RDW (11.5 - 14.5 %) 19.7 H Plt Count (130 - 400 /CUMM) 264 MPV (7.4 - 10.4 FL) 9.2 Gran % (42.2 - 75.2 %) 70.5 Lymphocytes % (20.5 - 51.1 %) 19.1 L Monocytes % (1.7 - 9.3 %) 6.9 Eosinophils % (0 - 5 %) 3.1 Basophils % (0.0 - 2.0 %) 0.4 Absolute Granulocytes (1.4 - 6.5 /CUMM) 5.1 Absolute Lymphocytes (1.2 - 3.4 /CUMM) 1.4 Absolute Monocytes (0.10 - 0.60 /CUMM) 0.5 Absolute Eosinophils (0.0 - 0.7 /CUMM) 0.2 Absolute Basophils (0.0 - 0.2 /CUMM) 0 Miscellaneous Phlebotomy Draw Site RIGHT RADIAL Toxicology Serum Alcohol (<10 MG/DL) < 10.0 Acetone Level (NEGATIVE) POSITIVE : UNDILUTED Assessment/Plan Assessment/Plan This 76-year-old male presents with uncontrolled diabetes and a hyperosmolar hyperglycemic state. He had a recent colonoscopy and states over the last several days he has lost his appetite. He was drinking mainly fluids containing large amounts of sugar such as regular soda and juices. He noticed increased thirst and urination. The patient's hemoglobin A1c was previously elevated so that he did have underlying diabetes in the past. The patient has already had 2-3 L of normal saline. Since he has chronic renal disease I think we should be conservative on his fluids from this point on. I would run half normal saline at 100 cc/h. We can place him on an insulin drip. Since his sugar is already down to 500 we could begin with 4 units of regular insulin per hour. We should measure his sugar every hour. The patient needs repeat blood work at this point to see where his sodium and potassium is. We may be able to switch him to subcu insulin starting tonight once his sugar is in a better range. The patient also should be allowed to eat his diet which should be a consistent carbohydrate 1. If we wish to switch the patient to subcu insulin later tonight I would give begin 10 units of Levemir twice a day the first dose stat. We would also place him on novolog coverage before meals with a separate sliding scale at bedtime. NovoLog coverage before meals should be 80-150 give 4 units NovoLog, 151-200 give 5 units NovoLog, 201-250 give 6 units NovoLog, 251-300 give 7 units NovoLog , 301-350 give 8 units NovoLog, 351-400 give 9 units NovoLog. A separate bedtime sliding scale NovoLog should be written. Sliding scale NovoLog at bedtime should be less than 250 give no insulin to 51-300 give 2 units NovoLog 301-350 give 3 units NovoLog, 351-400 give 4 units NovoLog. The patient should have thyroid function tests done especially in view of his previous episode of atrial fibrillation. In addition he should have a renal ultrasound in view of his chronic kidney disease for follow-up of the multiple renal cysts. Consult Acknowledgment - Thank you for your consult request.
--- NOTE | 2017-05-23 19:41 | Admission Certification ---
Admission Certification Certification Statement - As attending physician, I certify that at the time of - admission, based on clinical presentation, severity of - symptoms, need for further diagnostic testing and - therapeutic interventions, and risk of adverse outcomes - without in-hospital treatment, in my clinical assessment, - this patient requires an acute hospital stay for a minimum - of two nights or longer. I have also considered psychsocial - factors such as support system, advanced age, financial - issues, cognitive issues, and failed out-patient treatments, - past re-admission history, safety of patient, and lack of - compliance as applicable. Specific rationale supporting this admission is: HHS with delirium
[2017-05-24] VITALS: BP 150/70
[2017-05-24 04:45] LABS: ABSOLUTE BASOPHIL COUNT 0 /CUMM (0.0-0.2); ABSOLUTE EOSINOPHIL COUNT 0.2 /CUMM (0.0-0.7); ABSOLUTE GRANULOCYTE CT 4.1 /CUMM (1.4-6.5); ABSOLUTE LYMPH COUNT 1.3 /CUMM (1.2-3.4); ABSOLUTE MONOCYTE COUNT 0.5 /CUMM (0.10-0.60); BASOPHIL % 0.3 % (0.0-2.0); EOSINOPHIL % 3.9 % (0-5); GRANULOCYTE % 66.5 % (42.2-75.2); MEAN CORPUSCULAR HGB 27.4 PG (27.0-31.0); MEAN CORPUSCULAR HGB CONC 33.5 G/DL (33.0-37.0); MEAN CORPUSCULAR VOLUME 81.8 FL (80.0-94.0); MEAN PLATELET VOLUME 8.6 FL (7.4-10.4); PLATELET COUNT 232 /CUMM (130-400); RED BLOOD CELL CT 3.35 /CUMM (4.70-6.10); WHITE BLOOD CELL COUNT 6.2 /CUMM (4.8-10.8)
[2017-05-24 04:48] LABS: HEMATOCRIT 27.4 % (42-52)
--- NOTE | 2017-05-24 07:19 | PN- Diabetes ---
Assessment/Plan Diabetes Assessment: The patient is doing well. He is eating. There has been no nausea or vomiting. During the night he was treated with an insulin drip. This morning we have begun converting him to subcu insulin. The patient's labs are improved. His creatinine is 1.8 BUN 22 sodium 138, potassium 4.4, chloride 108, and CO2 21. Anion gap is 9. Plan: Patient should begin Levemir 10 units twice a day today and sliding scale NovoLog as suggested yesterday his consult note. His labs are improved. He can move out of the intensive care unit to a regular floor. He should be on a consistent carbohydrate 1 diet. Since the patient has stage IV renal disease, he is not a candidate for oral medications for his diabetes . We will need to teach him how to take insulin. I would add her free T4 to his thyroid tests since the patient has sinus bradycardia. Subjective Subjective: Feels okay Review of Systems Constitutional: Denies: chills, fever. Cardiovascular: Denies: chest pain. Respiratory: Denies: short of breath. Gastrointestinal: Denies: abdominal pain, nausea, vomiting. Skin: Reports: no symptoms. Objective Last 24 Hrs of Vital Signs/I&O Vital Signs Date Time Temp Pulse Resp B/P B/P Pulse O2 O2 Flow FiO2 Mean Ox Delivery Rate 05/24 0400 97 Nasal 2.0L Cannula 05/24 0000 92 Nasal 2.0L Cannula 05/24 0000 97.9 68 18 150/70 92 Nasal 2.0L Cannula 05/23 2358 74 20 140/66 05/23 2343 95 Nasal 2.0L Cannula 05/23 2126 Room Air 05/23 2104 95 Room Air 05/23 1921 97.6 74 18 115/61 95 Room Air 05/23 1656 98.0 76 18 142/89 96 Room Air Room Air 05/23 1452 97.5 78 18 131/81 93 Intake & Output 05/24 0800 05/24 0000 05/23 1600 Intake Total 723 3409 Output Total 800 2100 Balance -77 1309 Intake, IV 413 3289 Intake, Oral 310 120 Number 0 Bowel Movements Output, Urine 800 2100 Patient 220 lb 220 lb Weight Weight Reported by Patient Reported by Patient Measurement Method Vital Signs Date Time Temp Pulse Resp B/P B/P Pulse O2 O2 Flow FiO2 Mean Ox Delivery Rate 05/24 0400 97 Nasal 2.0L Cannula 05/24 0000 92 Nasal 2.0L Cannula 05/24 0000 97.9 68 18 150/70 92 Nasal 2.0L Cannula 05/23 2358 74 20 140/66 05/23 2343 95 Nasal 2.0L Cannula 05/23 2126 Room Air 05/23 2104 95 Room Air 05/23 1921 97.6 74 18 115/61 95 Room Air 05/23 1656 98.0 76 18 142/89 96 Room Air Room Air 05/23 1452 97.5 78 18 131/81 93 Intake & Output 05/24 0800 05/24 0000 05/23 1600 Intake Total 723 3409 Output Total 800 2100 Balance -77 1309 Intake, IV 413 3289 Intake, Oral 310 120 Number 0 Bowel Movements Output, Urine 800 2100 Patient 220 lb 220 lb Weight Weight Reported by Patient Reported by Patient Measurement Method Physical Exam General Appearance: alert, awake, comfortable Head: normal appearance Neck: normal inspection Respiratory: normal breath sounds Cardiovascular: regular rate/rhythm Abdomen: normal bowel sounds Extremities: normal inspection Current Medications: Current Medications Sig/Ramya Start time Last Medication Dose Route Stop Time Status Admin Albuterol Sulfate 3 ML TID 05/23 2200 AC 05/23 INH 2102 Albuterol Sulfate 2 PUF Q4-6 PRN PRN 05/23 2000 AC INH Amlodipine Besylate 10 MG DAILY 05/24 1000 AC PO Aspirin 81 MG DAILY 05/24 1000 AC PO Atorvastatin Calcium 20 MG DAILY 05/24 1000 AC PO Budesonide/ 2 PUF BID 05/23 2200 AC Formoterol Fumarate INH Diltiazem HCl 180 MG DAILY 05/24 1000 AC PO Doxazosin Mesylate 1 MG DAILY 05/24 1000 AC PO Famotidine 20 MG DAILY 05/24 1000 AC PO Imipenem/Cilastatin 250 MG Q6 05/23 1833 DC Sodium IV Sodium Chloride 100 ML Insulin Aspart 0 AT BEDTIME 05/24 2200 AC SC Insulin Aspart 0 TIDAC 05/24 0800 AC SC Insulin Detemir 10 UNITS BID 05/24 1000 AC 05/24 SC 0624 Insulin Human Regular 100 UNIT Q24H 05/23 1830 DC 05/23 Sodium Chloride 100 ML IV 1844 Insulin Human Regular 10 UNITS ONCE ONE 05/23 1700 DC 05/23 IV 05/23 1701 1736 Insulin Human Regular 100 UNIT ONCE ONE 05/23 1700 DC Sodium Chloride 100 ML IV 05/23 1701 Melatonin 5 MG AT BEDTIME 05/24 2199 AC 05/24 PO 0004 Metoprolol Tartrate 50 MG BID 05/23 2199 AC 05/23 PO 2358 Non-Formulary 0 SEE ADMIN CRITERIA 05/23 1930 DC Medication ANY Omeprazole 40 MG DAILY AC 05/24 0700 AC 05/24 PO 0625 Potassium Chloride 40 MEQ ONCE ONE 05/24 0245 DC 05/24 PO 05/24 0246 0255 Sodium Chloride 1,000 ML Q10H 05/23 1830 DC 05/24 IV 0556 Sodium Chloride 1,000 ML BOLUS ONE 05/23 1630 DC 05/23 IV 05/23 1729 1630 Sodium Chloride 1,000 ML BOLUS ONE 05/23 1630 DC 05/23 IV 05/23 1729 1652 Sodium Chloride 1,000 ML BOLUS ONE 05/23 1630 DC 05/23 IV 05/23 1729 1754 Vital Signs Date Time Temp Pulse Resp B/P B/P Pulse O2 O2 Flow FiO2 Mean Ox Delivery Rate 05/24 0400 97 Nasal 2.0L Cannula 05/24 0000 92 Nasal 2.0L Cannula 05/24 0000 97.9 68 18 150/70 92 Nasal 2.0L Cannula 05/23 2358 74 20 140/66 05/23 2343 95 Nasal 2.0L Cannula 05/23 2126 Room Air 05/23 2104 95 Room Air 05/23 1921 97.6 74 18 115/61 95 Room Air 05/23 1656 98.0 76 18 142/89 96 Room Air Room Air 05/23 1452 97.5 78 18 131/81 93 Intake & Output 05/24 0800 05/24 0000 05/23 1600 Intake Total 723 3409 Output Total 800 2100 Balance -77 1309 Intake, IV 413 3289 Intake, Oral 310 120 Number 0 Bowel Movements Output, Urine 800 2100 Patient 220 lb 220 lb Weight Weight Reported by Patient Reported by Patient Measurement Method Findings Pertinent Lab/Darnell Results: Laboratory Tests 05/24 05/24 05/24 0415 0200 0000 Chemistry Sodium (137 - 145 mmol/L) 138 Cancelled 137 Potassium (3.5 - 5.1 mmol/L) 4.4 Cancelled 3.8 Chloride (98 - 107 mmol/L) 108 H Cancelled 106 Carbon Dioxide (22 - 30 mmol/L) 21 L Cancelled 20 L Anion Gap (5 - 16) 9 Cancelled 12 BUN (9 - 20 mg/dL) 22 H Cancelled 25 H Creatinine (0.7 - 1.2 mg/dL) 1.8 H Cancelled 1.9 H Estimated GFR (>60 ml/min) 37 L 35 L Glucose (65 - 99 mg/dL) 199 H Cancelled 249 H Calcium (8.4 - 10.2 mg/dL) 8.5 Cancelled 8.4 Phosphorus (2.5 - 4.5 mg/dL) 3.5 Cancelled 3.2 Magnesium (1.6 - 2.3 mg/dL) 1.9 Cancelled 1.8 Total Bilirubin (0.2 - 1.3 mg/dL) 0.4 Cancelled 0.3 AST (17 - 59 U/L) 13 L Cancelled 13 L ALT (21 - 72 U/L) 31 Cancelled 29 Albumin (3.5 - 5.0 g/dL) 3.0 L Cancelled 3.1 L Hematology CBC w Diff NO MAN DIFF REQ WBC (4.8 - 10.8 /CUMM) 6.2 RBC (4.70 - 6.10 /CUMM) 3.35 L Hgb (14.0 - 18.0 G/DL) 9.2 L Hct (42 - 52 %) 27.4 L MCV (80.0 - 94.0 FL) 81.8 MCH (27.0 - 31.0 PG) 27.4 MCHC (33.0 - 37.0 G/DL) 33.5 RDW (11.5 - 14.5 %) 19.0 H Plt Count (130 - 400 /CUMM) 232 MPV (7.4 - 10.4 FL) 8.6 Gran % (42.2 - 75.2 %) 66.5 Lymphocytes % (20.5 - 51.1 %) 21.6 Monocytes % (1.7 - 9.3 %) 7.7 Eosinophils % (0 - 5 %) 3.9 Basophils % (0.0 - 2.0 %) 0.3 Absolute Granulocytes (1.4 - 6.5 /CUMM) 4.1 Absolute Lymphocytes (1.2 - 3.4 /CUMM) 1.3 Absolute Monocytes (0.10 - 0.60 /CUMM) 0.5 Absolute Eosinophils (0.0 - 0.7 /CUMM) 0.2 Absolute Basophils (0.0 - 0.2 /CUMM) 0 05/23 1627 Chemistry Sodium (137 - 145 mmol/L) 136 L Cancelled Potassium (3.5 - 5.1 mmol/L) 3.9 Cancelled Chloride (98 - 107 mmol/L) 105 Cancelled Carbon Dioxide (22 - 30 mmol/L) 20 L Cancelled Anion Gap (5 - 16) 11 Cancelled BUN (9 - 20 mg/dL) 26 H Cancelled Creatinine (0.7 - 1.2 mg/dL) 2.0 H Cancelled Estimated GFR (>60 ml/min) 33 L Glucose (65 - 99 mg/dL) 276 H Cancelled Calcium (8.4 - 10.2 mg/dL) 8.4 Cancelled Phosphorus (2.5 - 4.5 mg/dL) 2.9 Cancelled Magnesium (1.6 - 2.3 mg/dL) 1.8 Cancelled Total Bilirubin (0.2 - 1.3 mg/dL) 0.3 Cancelled AST (17 - 59 U/L) 12 L Cancelled ALT (21 - 72 U/L) 30 Cancelled Albumin (3.5 - 5.0 g/dL) 3.0 L Cancelled Urines Urine Color (YEL,AMB,STR) YEL Urine Clarity (CLEAR) CLEAR Urine pH (5.0 - 8.0) 6.0 Ur Specific [place] (1.001 - 1.035) 1.010 Urine Protein (NEG,<30 MG/DL) NEG Urine Ketones (NEG) NEG Urine Nitrite (NEG) NEG Urine Bilirubin (NEG) NEG Urine Urobilinogen (0.1 - 1.0 EU/dl) 0.2 Ur Leukocyte Esterase (NEG) NEG Ur Microscopic EXAM NOT REQUIRED Urine Hemoglobin (NEG) NEG Urine Glucose (N MG/DL) >=1000 H 05/23 05/23 1627 1512 Chemistry Sodium (137 - 145 mmol/L) 127 L Potassium (3.5 - 5.1 mmol/L) 4.8 Chloride (98 - 107 mmol/L) 94 L Carbon Dioxide (22 - 30 mmol/L) 20 L Anion Gap (5 - 16) 13 BUN (9 - 20 mg/dL) 29 H Creatinine (0.7 - 1.2 mg/dL) 2.3 H Estimated GFR (>60 ml/min) 28 L BUN/Creatinine Ratio (7 - 25 %) 12.6 Glucose (65 - 99 mg/dL) 819 *H Hemoglobin A1c (4.2 - 5.8 %) Pending Calcium (8.4 - 10.2 mg/dL) 8.9 Total Bilirubin (0.2 - 1.3 mg/dL) 0.5 AST (17 - 59 U/L) 14 L ALT (21 - 72 U/L) 29 Alkaline Phosphatase (< 127 U/L) 151 H Troponin I (<0.11 ng/ml) < 0.01 Total Protein (6.3 - 8.2 g/dL) 6.1 L Albumin (3.5 - 5.0 g/dL) 3.6 Globulin (1.9 - 4.2 gm/dL) 2.5 Albumin/Globulin Ratio (1.1 - 2.2 %) 1.4 TSH (0.270 - 4.200 uIU/mL) 1.510 Hematology CBC w Diff NO MAN DIFF REQ WBC (4.8 - 10.8 /CUMM) 7.2 RBC (4.70 - 6.10 /CUMM) 3.95 L Hgb (14.0 - 18.0 G/DL) 10.6 L Hct (42 - 52 %) 32.8 L MCV (80.0 - 94.0 FL) 83.1 MCH (27.0 - 31.0 PG) 26.9 L MCHC (33.0 - 37.0 G/DL) 32.4 L RDW (11.5 - 14.5 %) 19.7 H Plt Count (130 - 400 /CUMM) 264 MPV (7.4 - 10.4 FL) 9.2 Gran % (42.2 - 75.2 %) 70.5 Lymphocytes % (20.5 - 51.1 %) 19.1 L Monocytes % (1.7 - 9.3 %) 6.9 Eosinophils % (0 - 5 %) 3.1 Basophils % (0.0 - 2.0 %) 0.4 Absolute Granulocytes (1.4 - 6.5 /CUMM) 5.1 Absolute Lymphocytes (1.2 - 3.4 /CUMM) 1.4 Absolute Monocytes (0.10 - 0.60 /CUMM) 0.5 Absolute Eosinophils (0.0 - 0.7 /CUMM) 0.2 Absolute Basophils (0.0 - 0.2 /CUMM) 0 Toxicology Urine Opiates Screen (>2000 NG/ML) < 100.00 Methadone Screen (>300 NG/ML) < 40 Barbiturate Screen (>200 NG/ML) < 60 Ur Phencyclidine Scrn (>25 NG/ML) < 6.00 Amphetamines Screen (>1000 NG/ML) < 100 U Benzodiazepines Scrn (>200 NG/ML) < 85 Urine Cocaine Screen (>300 NG/ML) < 50 Urine Cannabis Screen (>50 NG/ML) < 5.00 Serum Alcohol (<10 MG/DL) < 10.0 Acetone Level (NEGATIVE) POSITIVE : UNDILUTED Urines Ur Random Creatinine (mg/dL) 41.2 Ur Random Sodium (30 - 90 mmol/L) 23 L Ur Random Potassium (mmol/L) 14.5 Fraction Sodium Excret (<1% %) 1.0 05/23 05/23 1510 UNK Blood Gas pH (7.35 - 7.45 PH) 7.40 pCO2 (35 - 45 TORR) 32 L pO2 (80 - 100 TORR) 78 L HCO3 (21 - 28 MEQ/L) 19 L ABG O2 Sat (Measured) (>96.0 %) 94.0 L P-50 (Temp Corrected) N Carboxyhemoglobin (1.5 - 5.0 %) 0.5 L O2 Concentration % .21 O2 Delivery Method RA Chemistry Sodium Cancelled Potassium Cancelled Chloride Cancelled Carbon Dioxide Cancelled Anion Gap Cancelled BUN Cancelled Creatinine Cancelled Glucose Cancelled Calcium Cancelled Phosphorus Cancelled Magnesium Cancelled Total Bilirubin Cancelled AST Cancelled ALT Cancelled Albumin Cancelled Miscellaneous Phlebotomy Draw Site RIGHT RADIAL
--- NOTE | 2017-05-24 07:37 | PN- Housestaff ---
[facility] CLEMENTE,[facility] 05/24/17 0737: Subjective Follow-up For: hhs mastoiditis Subjective: Saw pt at bedside this AM. No acute overnight events or complaints. He was sitting up and eating breakfast. He seemed cheerful and interactive. Stated that he was having decreased deafness and discomfort in his ears. He has been switched from insulin drip to SQ regimen. Review of Systems Constitutional: Denies: no symptoms, chills, fever, malaise. EENTM: Reports: hearing changes. Denies: blurred vision, double vision, ear pain, ear redness, nasal congestion, throat pain. Cardiovascular: Denies: chest pain, palpitations. Respiratory: Denies: cough, short of breath. Gastrointestinal: Denies: abdominal pain. Genitourinary: Reports: no symptoms. Musculoskeletal: Reports: no symptoms. Objective Last 24 Hrs of Vital Signs/I&O Vital Signs Date Time Temp Pulse Resp B/P B/P Pulse O2 O2 Flow FiO2 Mean Ox Delivery Rate 05/24 0849 95 Nasal 2.0L Cannula 05/24 0800 94 Nasal 2.0L Cannula 05/24 0800 97.2 69 24 140/76 94 Nasal 2.0L Cannula 05/24 0400 97 Nasal 2.0L Cannula 05/24 0000 92 Nasal 2.0L Cannula 05/24 0000 97.9 68 18 150/70 92 Nasal 2.0L Cannula 05/23 2358 74 20 140/66 05/23 2343 95 Nasal 2.0L Cannula 05/23 2126 Room Air 05/23 2104 95 Room Air 05/23 1921 97.6 74 18 115/61 95 Room Air 05/23 1656 98.0 76 18 142/89 96 Room Air Room Air 05/23 1452 97.5 78 18 131/81 93 Intake & Output 05/24 1600 05/24 0800 05/24 0000 Intake Total 723 3409 Output Total 800 2100 Balance -77 1309 Intake, IV 413 3289 Intake, Oral 310 120 Number 0 Bowel Movements Output, Urine 800 2100 Patient 99.79 kg Weight Weight Reported by Patient Measurement Method Physical Exam General Appearance: Alert, Oriented X3, Cooperative, No Acute Distress Skin: No Rashes, No Significant Lesion HEENT: Atraumatic, PERRLA, EOMI, Mucous Membr. moist/pink, L. ear has cloudy/ yellow appearance behind tympanic membrane. Slight erythema present. No bulging. Dulling of light reflex, r. ear looks to be wnl. Neck: Supple Cardiovascular: Regular Rate, Normal S1, Normal S2 Lungs: Clear to Auscultation, Normal Air Movement Abdomen: Soft, No Tenderness Extremities: No Edema Current Medications: Current Medications Sig/Ramya Start time Last Medication Dose Route Stop Time Status Admin Albuterol Sulfate 3 ML TID 05/23 2200 AC 05/24 INH 0845 Albuterol Sulfate 2 PUF Q4-6 PRN PRN 05/23 2000 AC INH Amlodipine Besylate 10 MG DAILY 05/24 1000 AC PO Aspirin 81 MG DAILY 05/24 1000 AC PO Atorvastatin Calcium 20 MG DAILY 05/24 1000 AC PO Budesonide/ 2 PUF BID 05/23 2200 AC Formoterol Fumarate INH Diltiazem HCl 180 MG DAILY 05/24 1000 AC PO Doxazosin Mesylate 1 MG DAILY 05/24 1000 AC PO Famotidine 20 MG DAILY 05/24 1000 DC PO Imipenem/Cilastatin 250 MG Q6 05/23 1833 DC Sodium IV Sodium Chloride 100 ML Insulin Aspart 0 AT BEDTIME 05/24 2200 AC SC Insulin Aspart 0 TIDAC 05/24 0800 AC SC Insulin Detemir 10 UNITS BID 05/24 1000 AC 05/24 SC 0624 Insulin Human Regular 100 UNIT Q24H 05/23 1830 DC 05/23 Sodium Chloride 100 ML IV 1844 Insulin Human Regular 10 UNITS ONCE ONE 05/23 1700 DC 05/23 IV 05/23 1701 1736 Insulin Human Regular 100 UNIT ONCE ONE 05/23 1700 DC Sodium Chloride 100 ML IV 05/23 1701 Melatonin 5 MG AT BEDTIME 05/24 2200 AC 05/24 PO 0004 Melatonin 5 MG .STK-MED ONE 05/23 2358 DC PO 05/23 2359 Metoprolol Tartrate 50 MG .STK-MED ONE 05/23 2357 DC PO 05/23 2358 Metoprolol Tartrate 50 MG BID 05/23 2200 AC 05/23 PO 2358 Non-Formulary 0 SEE ADMIN CRITERIA 05/23 1930 DC Medication ANY Omeprazole 40 MG DAILY AC 05/24 0700 AC 05/24 PO 0625 Potassium Chloride 40 MEQ ONCE ONE 05/24 0245 DC 05/24 PO 05/24 0246 0255 Sodium Chloride 1,000 ML Q10H 05/23 1830 DC 05/24 IV 0556 Sodium Chloride 1,000 ML BOLUS ONE 05/23 1630 DC 05/23 IV 05/23 1729 1630 Sodium Chloride 1,000 ML BOLUS ONE 05/23 1630 DC / IV 05/23 1729 1652 Sodium Chloride 1,000 ML BOLUS ONE 05/23 1630 DC 05/23 IV 05/23 1729 1754 Last 24 Hrs of Lab/Darnell Results Last 24 Hrs of Labs/Mics: Laboratory Tests 05/24/17 0415: Anion Gap 9, Estimated GFR 37 L, Glucose 199 H, Calcium 8.5, Phosphorus 3.5, Magnesium 1.9, Total Bilirubin 0.4, AST 13 L, ALT 31, Albumin 3.0 L, CBC w Diff NO MAN DIFF REQ, RBC 3.35 L, MCV 81.8, MCH 27.4, MCHC 33.5, RDW 19.0 H, MPV 8.6, Gran % 66.5, Lymphocytes % 21.6, Monocytes % 7.7, Eosinophils % 3.9, Basophils % 0.3, Absolute Granulocytes 4.1, Absolute Lymphocytes 1.3, Absolute Monocytes 0.5, Absolute Eosinophils 0.2, Absolute Basophils 0 05/24/17 0200: Sodium Cancelled, Potassium Cancelled, Chloride Cancelled, Carbon Dioxide Cancelled, Anion Gap Cancelled, BUN Cancelled, Creatinine Cancelled, Glucose Cancelled, Calcium Cancelled, Phosphorus Cancelled, Magnesium Cancelled, Total Bilirubin Cancelled, AST Cancelled, ALT Cancelled, Albumin Cancelled 05/24/17 0000: Anion Gap 12, Estimated GFR 35 L, Glucose 249 H, Calcium 8.4, Phosphorus 3.2, Magnesium 1.8, Total Bilirubin 0.3, AST 13 L, ALT 29, Albumin 3.1 L 05/23/17 2200: Anion Gap 11, Estimated GFR 33 L, Glucose 276 H, Calcium 8.4, Phosphorus 2.9, Magnesium 1.8, Total Bilirubin 0.3, AST 12 L, ALT 30, Albumin 3.0 L 05/23/17 2000: Sodium Cancelled, Potassium Cancelled, Chloride Cancelled, Carbon Dioxide Cancelled, Anion Gap Cancelled, BUN Cancelled, Creatinine Cancelled, Glucose Cancelled, Calcium Cancelled, Phosphorus Cancelled, Magnesium Cancelled, Total Bilirubin Cancelled, AST Cancelled, ALT Cancelled, Albumin Cancelled 05/23/17 162: Urine Color YEL, Urine Clarity CLEAR, Urine pH 6.0, Ur Specific [place] 1.010, Urine Protein NEG, Urine Ketones NEG, Urine Nitrite NEG, Urine Bilirubin NEG, Urine Urobilinogen 0.2, Ur Leukocyte Esterase NEG, Ur Microscopic EXAM NOT REQUIRED, Urine Hemoglobin NEG, Urine Glucose >=1000 H 05/23/17 162: Urine Opiates Screen < 100.00, Methadone Screen < 40, Barbiturate Screen < 60, Ur Phencyclidine Scrn < 6.00, Amphetamines Screen < 100, U Benzodiazepines Scrn < 85, Urine Cocaine Screen < 50, Urine Cannabis Screen < 5.00, Ur Random Creatinine 41.2, Ur Random Sodium 23 L, Ur Random Potassium 14.5, Fraction Sodium Excret 1.0 05/23/17 151: Anion Gap 13, Estimated GFR 28 L, BUN/Creatinine Ratio 12.6, Glucose 819 *H, Hemoglobin A1c Pending, Calcium 8.9, Total Bilirubin 0.5, AST 14 L, ALT 29, Alkaline Phosphatase 151 H, Troponin I < 0.01, Total Protein 6.1 L, Albumin 3.6, Globulin 2.5, Albumin/Globulin Ratio 1.4, TSH 1.510, CBC w Diff NO MAN DIFF REQ, RBC 3.95 L, MCV 83.1, MCH 26.9 L, MCHC 32.4 L, RDW 19.7 H, MPV 9.2, Gran % 70.5, Lymphocytes % 19.1 L, Monocytes % 6.9, Eosinophils % 3.1, Basophils % 0.4, Absolute Granulocytes 5.1, Absolute Lymphocytes 1.4, Absolute Monocytes 0.5, Absolute Eosinophils 0.2, Absolute Basophils 0, Serum Alcohol < 10.0, Acetone Level POSITIVE : UNDILUTED 05/23/171509: pH 7.40, pCO2 32 L, pO2 78 L, HCO3 19 L, ABG O2 Sat (Measured) 94.0 L, P-50 (Temp Corrected) N, Carboxyhemoglobin 0.5 L, O2 Concentration % .21, O2 Delivery Method RA, Phlebotomy Draw Site RIGHT RADIAL Microbiology 05/23 2049 UPPER RESP: Surveillance Culture - RECD 05/23 2049 GI: Surveillance Culture - RECD Assessment/Plan Assessment: This is a 76-year-old gentleman with PMH of CAD status post CABG for 20 years ago, COPD not on home O2, HTN, HLD, BPH, pre-diabetes was brought to the hospital for further evaluation of change in mental status. In the ED was noted to be hyperglycemic to 819, with normal anion gap and a head CT showing fluid in the bilateral mastoid air cells and in the left middle ear cavity. PLAN HHS: Pt labs much improved. Last FS 164, 178, 221, 203, 238. No gap, bicarb WNL. Pt was initially on insulin drip and has since transitioned to SQ regimen. Per Dr. Hernandez, due to stage IV CKD pt is not candidate for oral hypoglycemics and will need to be taught how to take insulin. Pt not on any home diabetic regimen previously as he was only diagnosed with pre-diabetes. * Appreciate Endo recs * Pt switched to SQ regimen per Endo: 10 u Levemir and Aspart as noted in orders * HbA1c pending Ear infection: Pt has known chronic otitis media. CT head, done on admission for eval of AMS, showed fluid in l. middle ear and bialt mastoids. There was concern that this was precipitant for Hyperosmolar hyperglycemic state. Has seen Dr. Cuba previously and had tympanostomy tube in l. ear. Per Dr. Fam who saw pt in hospital there is currently no indication for acute intervention. Pt can continue with a total of one week of antibiotics and then follow up outpatient for further eval. * Zosyn started on 05/23/2016 * Appreciate ENT consult Anemia: Pt has known hx of anemia. He is around his baseline. Double scope on May 19 showed polyps, diverticulosis, mixed hemorrhoidal disease, and erosive gastritis. * Con't monitor * GI ppx BRANDEE on CKD: Cr was 2.3 on admission today down to 1.8. Looks to be back around his baseline. * Monitor renal function * Avoid nephrotoxins HTN: Con't home reg * Cardura 1mg daily * Amlodipine 10mg * Lopressor 50mg BID CAD: Last echo in showed normal left ventricular systolic function. Mild LVH. Moderate LAE. Moderate TR with mild Pulmonary hypertension RVSP at 45mmHg * ASA 81 * Statin AFIB: * Diltiazem CD 180mg FC Chem ppx CC1 Diet Problem List: 1. Renal insufficiency 2. COPD (chronic obstructive pulmonary disease) Pain Ratin Pain Location: noen Pain Goal: Remain pain free Pain Plan: current reg Tomorrow's Labs & Rationales: cbc bep Raina Jackson MD 05/24/17 1130: Attending MD Review Statement Attending Statement Attending MD Statement: examined this patient, discuss w/resident/PA/UTILITY WORKER ROLLER SHOP, agreed w/resident/PA/UTILITY WORKER ROLLER SHOP, reviewed EMR data (avail), discussed with nursing, discussed with case mgmt, reviewed images, amended to note Attending Assessment/Plan: Patient seen and examined, overall doing better. Blood sugars are much better. Patient was also seen by ENT. Vital Signs Date Time Temp Pulse Resp B/P B/P Pulse O2 O2 Flow FiO2 Mean Ox Delivery Rate 05/24 0849 95 Nasal 2.0L Cannula 05/24 0800 94 Nasal 2.0L Cannula 05/24 0800 97.2 69 24 140/76 94 Nasal 2.0L Cannula 05/24 0400 97 Nasal 2.0L Cannula 05/24 0000 92 Nasal 2.0L Cannula 05/24 0000 97.9 68 18 150/70 92 Nasal 2.0L Cannula 05/23 2358 74 20 140/66 05/23 2343 95 Nasal 2.0L Cannula 05/23 2126 Room Air 05/23 2104 95 Room Air 05/23 1921 97.6 74 18 115/61 95 Room Air 05/23 1656 98.0 76 18 142/89 96 Room Air Room Air 05/23 1452 97.5 78 18 131/81 93 on exam; aox3, nad. cv; s1, s2, rrr resp; clear abd; soft, nt, bs+ ext; no edema. Laboratory Tests 05/24 05/24 05/24 0415 0200 0000 Chemistry Sodium (137 - 145 mmol/L) 138 Cancelled 137 Potassium (3.5 - 5.1 mmol/L) 4.4 Cancelled 3.8 Chloride (98 - 107 mmol/L) 108 H Cancelled 106 Carbon Dioxide (22 - 30 mmol/L) 21 L Cancelled 20 L Anion Gap (5 - 16) 9 Cancelled 12 BUN (9 - 20 mg/dL) 22 H Cancelled 25 H Creatinine (0.7 - 1.2 mg/dL) 1.8 H Cancelled 1.9 H Estimated GFR (>60 ml/min) 37 L 35 L Glucose (65 - 99 mg/dL) 199 H Cancelled 249 H Calcium (8.4 - 10.2 mg/dL) 8.5 Cancelled 8.4 Phosphorus (2.5 - 4.5 mg/dL) 3.5 Cancelled 3.2 Magnesium (1.6 - 2.3 mg/dL) 1.9 Cancelled 1.8 Total Bilirubin (0.2 - 1.3 mg/dL) 0.4 Cancelled 0.3 AST (17 - 59 U/L) 13 L Cancelled 13 L ALT (21 - 72 U/L) 31 Cancelled 29 Albumin (3.5 - 5.0 g/dL) 3.0 L Cancelled 3.1 L Hematology CBC w Diff NO MAN DIFF REQ WBC (4.8 - 10.8 /CUMM) 6.2 RBC (4.70 - 6.10 /CUMM) 3.35 L Hgb (14.0 - 18.0 G/DL) 9.2 L Hct (42 - 52 %) 27.4 L MCV (80.0 - 94.0 FL) 81.8 MCH (27.0 - 31.0 PG) 27.4 MCHC (33.0 - 37.0 G/DL) 33.5 RDW (11.5 - 14.5 %) 19.0 H Plt Count (130 - 400 /CUMM) 232 MPV (7.4 - 10.4 FL) 8.6 Gran % (42.2 - 75.2 %) 66.5 Lymphocytes % (20.5 - 51.1 %) 21.6 Monocytes % (1.7 - 9.3 %) 7.7 Eosinophils % (0 - 5 %) 3.9 Basophils % (0.0 - 2.0 %) 0.3 Absolute Granulocytes (1.4 - 6.5 /CUMM) 4.1 Absolute Lymphocytes (1.2 - 3.4 /CUMM) 1.3 Absolute Monocytes (0.10 - 0.60 /CUMM) 0.5 Absolute Eosinophils (0.0 - 0.7 /CUMM) 0.2 Absolute Basophils (0.0 - 0.2 /CUMM) 0 05/23 05/23 05/23 2200 1999 1627 Chemistry Sodium (137 - 145 mmol/L) 136 L Cancelled Potassium (3.5 - 5.1 mmol/L) 3.9 Cancelled Chloride (98 - 107 mmol/L) 105 Cancelled Carbon Dioxide (22 - 30 mmol/L) 20 L Cancelled Anion Gap (5 - 16) 11 Cancelled BUN (9 - 20 mg/dL) 26 H Cancelled Creatinine (0.7 - 1.2 mg/dL) 2.0 H Cancelled Estimated GFR (>60 ml/min) 33 L Glucose (65 - 99 mg/dL) 276 H Cancelled Calcium (8.4 - 10.2 mg/dL) 8.4 Cancelled Phosphorus (2.5 - 4.5 mg/dL) 2.9 Cancelled Magnesium (1.6 - 2.3 mg/dL) 1.8 Cancelled Total Bilirubin (0.2 - 1.3 mg/dL) 0.3 Cancelled AST (17 - 59 U/L) 12 L Cancelled ALT (21 - 72 U/L) 30 Cancelled Albumin (3.5 - 5.0 g/dL) 3.0 L Cancelled Urines Urine Color (YEL,AMB,STR) YEL Urine Clarity (CLEAR) CLEAR Urine pH (5.0 - 8.0) 6.0 Ur Specific [place] (1.001 - 1.035) 1.010 Urine Protein (NEG,<30 MG/DL) NEG Urine Ketones (NEG) NEG Urine Nitrite (NEG) NEG Urine Bilirubin (NEG) NEG Urine Urobilinogen (0.1 - 1.0 EU/dl) 0.2 Ur Leukocyte Esterase (NEG) NEG Ur Microscopic EXAM NOT REQUIRED Urine Hemoglobin (NEG) NEG Urine Glucose (N MG/DL) >=1000 H 05/23 05/23 1627 1512 Chemistry Sodium (137 - 145 mmol/L) 127 L Potassium (3.5 - 5.1 mmol/L) 4.8 Chloride (98 - 107 mmol/L) 94 L Carbon Dioxide (22 - 30 mmol/L) 20 L Anion Gap (5 - 16) 13 BUN (9 - 20 mg/dL) 29 H Creatinine (0.7 - 1.2 mg/dL) 2.3 H Estimated GFR (>60 ml/min) 28 L BUN/Creatinine Ratio (7 - 25 %) 12.6 Glucose (65 - 99 mg/dL) 819 *H Hemoglobin A1c (4.2 - 5.8 %) Pending Calcium (8.4 - 10.2 mg/dL) 8.9 Total Bilirubin (0.2 - 1.3 mg/dL) 0.5 AST (17 - 59 U/L) 14 L ALT (21 - 72 U/L) 29 Alkaline Phosphatase (< 127 U/L) 151 H Troponin I (<0.11 ng/ml) < 0.01 Total Protein (6.3 - 8.2 g/dL) 6.1 L Albumin (3.5 - 5.0 g/dL) 3.6 Globulin (1.9 - 4.2 gm/dL) 2.5 Albumin/Globulin Ratio (1.1 - 2.2 %) 1.4 TSH (0.270 - 4.200 uIU/mL) 1.510 Thyroxine (T4) (4.5 - 10.9 ug/dL) 9.6 Hematology CBC w Diff NO MAN DIFF REQ WBC (4.8 - 10.8 /CUMM) 7.2 RBC (4.70 - 6.10 /CUMM) 3.95 L Hgb (14.0 - 18.0 G/DL) 10.6 L Hct (42 - 52 %) 32.8 L MCV (80.0 - 94.0 FL) 83.1 MCH (27.0 - 31.0 PG) 26.9 L MCHC (33.0 - 37.0 G/DL) 32.4 L RDW (11.5 - 14.5 %) 19.7 H Plt Count (130 - 400 /CUMM) 264 MPV (7.4 - 10.4 FL) 9.2 Gran % (42.2 - 75.2 %) 70.5 Lymphocytes % (20.5 - 51.1 %) 19.1 L Monocytes % (1.7 - 9.3 %) 6.9 Eosinophils % (0 - 5 %) 3.1 Basophils % (0.0 - 2.0 %) 0.4 Absolute Granulocytes (1.4 - 6.5 /CUMM) 5.1 Absolute Lymphocytes (1.2 - 3.4 /CUMM) 1.4 Absolute Monocytes (0.10 - 0.60 /CUMM) 0.5 Absolute Eosinophils (0.0 - 0.7 /CUMM) 0.2 Absolute Basophils (0.0 - 0.2 /CUMM) 0 Toxicology Urine Opiates Screen (>2000 NG/ML) < 100.00 Methadone Screen (>300 NG/ML) < 40 Barbiturate Screen (>200 NG/ML) < 60 Ur Phencyclidine Scrn (>25 NG/ML) < 6.00 Amphetamines Screen (>1000 NG/ML) < 100 U Benzodiazepines Scrn (>200 NG/ML) < 85 Urine Cocaine Screen (>300 NG/ML) < 50 Urine Cannabis Screen (>50 NG/ML) < 5.00 Serum Alcohol (<10 MG/DL) < 10.0 Acetone Level (NEGATIVE) POSITIVE : UNDILUTED Urines Ur Random Creatinine (mg/dL) 41.2 Ur Random Sodium (30 - 90 mmol/L) 23 L Ur Random Potassium (mmol/L) 14.5 Fraction Sodium Excret (<1% %) 1.0 05/23 1510 Blood Gas pH (7.35 - 7.45 PH) 7.40 pCO2 (35 - 45 TORR) 32 L pO2 (80 - 100 TORR) 78 L HCO3 (21 - 28 MEQ/L) 19 L ABG O2 Sat (Measured) (>96.0 %) 94.0 L P-50 (Temp Corrected) N Carboxyhemoglobin (1.5 - 5.0 %) 0.5 L O2 Concentration % .21 O2 Delivery Method RA Miscellaneous Phlebotomy Draw Site RIGHT RADIAL A/P; 76 y/o M with pmh sig for CAD status post CABG for 20 years ago, COPD not on home O2 or chronic steroid, HTN, HLD, BPH admitted with altered mental status likely secondary to hyperglycemia, hyperosmolar state, otitis media with a question of acute mastoiditis. Patient currently is off of insulin drip and has been started on subcutaneous insulin per endocrinology recommendations. Initially was given Zosyn. Has been seen by ENT and they did not recommend performing any acute surgical interventions. As discussed with housestaff, Dr. Penaloza has discussed with housestaff about starting the patient on Augmentin. We'll do a total of seven- day course of antibiotics. Patient will need insulin teaching. He has been downgraded to general medicine floor. He will need an outpatient follow-up with endocrinology as well as ENT Dr. Cuba. Continue the rest of the medications. DVT prophylaxis:. Please start the patient on pharmacologic DVT prophylaxis with heparin subcutaneous if no contraindications.
[2017-05-24 08:00] VITALS: BP 140/76
--- NOTE | 2017-05-24 09:59 | Cons- Ear,Nose&Throat ---
General Information and HPI Consulting Request Date of Consult: 05/24/17 Requested By: Niki Vivar MD Reason for Consult: mastoiditis noted on CT Source of Information: patient, old records, providers Exam Limitations: no limitations, not present on floor - in Radiology History of Present Illness: CAlled to see patient for consultation. History obtained from providers in ICU and records.AND FROM PATIENT. HE RETURNED FROM RADIOLOGY. 76M PMH CAD status post CABG, COPD, HTN, HLD, BPH presenting with confusion and altered mental status for one day. Underwent colonoscopy and endoscopy for anemia several days ago. He was notd to have polyudypsia and polyuria, and mental status unclear His fingerstick at home was >500. Presented to ED and found to have glucose elevated over 800, and CT performed of head which showed fluid in both mastoid cavities, fluid in left middle ear, and otherwise normal head. He has seen Dr Coffey in the past for his ear problems, and has had tube placed previously in the office. He has no pain , tenderness, or drainage from his ears, or mastoid region. No fevers or chills. Allergies/Medications Allergies: Coded Allergies: NO KNOWN ALLERGIES (09/11/13) Home Med List: Albuterol Sulfate (Proair Hfa) 90 MCG HFA.AER.AD 2 PUF INH Q4-6 PRN PRN COPD (Reported) Amlodipine Besylate 10 MG TABLET 1 TAB PO DAILY HEART (Reported) Aspirin (Children's Aspirin) 81 MG TAB.CHEW 1 TAB PO DAILY HEART/BLOOD ( Reported) Atorvastatin Calcium (Lipitor) 20 MG TABLET 1 TAB PO DAILY CHOLESTEROL ( Reported) Budesonide/Formoterol Fumarate (Symbicort 160-4.5 Mcg Inhaler) 160 MCG-4.5 MCG/ ACTUATION HFA.AER.AD 2 PUF INH BID RESP. (Reported) Diltiazem HCl (Cardizem Cd) 180 MG CAP.ER.24H 1 CAP PO DAILY heart rate . Doxazosin Mesylate 1 MG TABLET 1 TAB PO DAILY HTN (Reported) Famotidine (Pepcid) 20 MG TABLET 1 TAB PO DAILY GASTRITIS Ferrous Sulfate (Slow Fe) 142 MG (45 MG IRON) TABLET.ER 1 TAB PO DAILY SUPPLEMENT (Reported) Ipratropium/Albuterol Sulfate (Iprat-Albut 0.5-3(2.5) MG/3 Ml) 0.5 MG-3 MG (2.5 MG BASE)/3 ML AMPUL.NEB 1 VIAL INH Q6-PRN PRN COPD (Reported) Levalbuterol HCl (Xopenex) 0.63 MG/3 ML VIAL.NEB 1 Vial INH/ROSHAN TID RESP. ( Reported) Metoprolol Tartrate 50 MG TABLET 1 TAB PO BID HEART/BP (Reported) Nystatin 100,000 UNIT/GRAM CREAM..G. 1 MAGDALENA TOP BID GROIN (Reported) apply to affected area(s) Omeprazole 40 MG CAPSULE.DR 1 CAP PO DAILY GI (Reported) Triamcinolone Acetonide 0.1 % OINT...G. 1 MAGDALENA TOP BID GROIN (Reported) apply to affected area(s) Past History Medical History Blood Transfusion Hx: No Neurological: NONE EENT: NONE Cardiovascular: AFIB, CAD, hypertension, hyperlipidemia Respiratory: COPD, obstructive sleep apnea Gastrointestinal: NONE Hepatic: NONE Renal: KIDNEY DISEASE Musculoskeletal: NONE Psychiatric: NONE Endocrine: diabetes Blood Disorders: anemia Surgical History Pertinent Surgical History: CABG, hernia repair-inguinal Family History Relations & Conditions If Any: SISTER, , Age 60+; Cause: Lymphoma. SISTER, , Age 60+; Cause: Colon cancer. MOTHER, , Age 60+; Cause: Leukemia. FH: CHF (congestive heart failure) Psychosocial History Where Do You Live? Home Smoking Status: Former Smoker ETOH Use: denies use Illicit Drug Use: denies illicit drug use Living Will? no Functional Ability ADLs Independent: dressing, eating, toileting, bathing. Ambulation: independent IADLs Independent: shopping, housework, finances, food prep, telephone, transportation , medication admin. Review of Systems Review of Systems: unremarkable through 13 systems with exceptions noted in chart. Exam & Diagnostic Data Vital Signs and I&O Vital Signs Date Time Temp Pulse Resp B/P B/P Pulse O2 O2 Flow FiO2 Mean Ox Delivery Rate 05/24 0849 95 Nasal 2.0L Cannula 05/24 0800 94 Nasal 2.0L Cannula 05/24 0800 97.2 69 24 140/76 94 Nasal 2.0L Cannula 05/24 0400 97 Nasal 2.0L Cannula 05/24 0000 92 Nasal 2.0L Cannula 05/24 0000 97.9 68 18 150/70 92 Nasal 2.0L Cannula 05/23 2358 74 20 140/66 05/23 2343 95 Nasal 2.0L Cannula 05/23 2126 Room Air 05/23 2104 95 Room Air 05/23 1921 97.6 74 18 115/61 95 Room Air 05/23 1656 98.0 76 18 142/89 96 Room Air Room Air 05/23 1452 97.5 78 18 131/81 93 Intake & Output 05/24 1600 05/24 0800 05/24 0000 05/23 1600 05/23 0800 05/23 0000 Intake Total 723 3409 Output Total 800 2100 Balance -77 1309 Intake, IV 413 3289 Intake, Oral 310 120 Number 0 Bowel Movements Output, Urine 800 2100 Patient 220 lb 220 lb Weight Weight Reported by Patient Reported by Patient Measurement Method Physical Exam: patient examined. Awake and alert. No complaints of tenderness or drainage from ears or mastoid.\ Fluid was noted in left ear noted behind TM, yellow, but not bulging. No facial weakness. Nose and throat otherwise clear. Neck supple. \ Assessment/Plan Assessment/Plan PATIENT WITH KNOWN CHRONIC OTITIS MEDIA. PRESENTED WITH DIABETIC EPISODE WITH GLUCOSE OVER 800. NOW GETTING CONTROLLED. CT SHOWED FLUID IN MIDDLE EAR LEFT AND MASTOIDS BILATERAL. NO SYMPTOMS RELATED TO THESE FINDINGS. EXCELLENT RESPONSE TO ZOSYN. HAS FLUID LEFT, BUT IN ABSENCE OF ANY FINDINGS IN MASTOIDS OR MORE ACUTE PROBLEMS, NO INDICATION FOR EMERGENT TUBE OR OTHER INTERVENTION. WOULD CONTINUE ABX FOR 1 WEEK COURSE, AND F/U WIOTH DR OCFFEY FOLLOWING DISCHARGE. NEEDS AUDIO AND IF PERSISTING FLUID, COULD ALWAYS PLACE DRAIN IN OFFICE. THANKS. HILTON VALENCIA MD, FACS Consult Acknowledgment - Thank you for your consult request. Attending MD Review Statement Attending Statement Attending MD Statement: examined this patient, discuss w/resident/PA/ROTARY ADJUSTER
--- NOTE | 2017-05-24 10:54 | Patient Discharge Instructions ---
Discharge Instructions General Discharge Information You were seen/treated for: Diabetes Hyperosmolar non-ketotic state You had these procedures: Insulin drip Watch for these problems: Change in mental status, increased urination, dizziness, chest pain, palpitation , severe weakness or worsening of any other problems. Special Instructions: Please follow-up with your PCP within one week of discharge. Please follow-up with your tax manager cpa within 1 week of discharge. Please follow-up with your ENT specialist within 1 week of discharge. Please take your medication and [facility] if symptoms worsen. Diet Continue normal diet: No Recommended Diet: Diabetic Activity Full Activity/No Limits: No Activity Self Limited: Yes Acute Coronary Syndrome Inclusion Criteria At DC or during hospital stay patient has or had the following: ACS DIAGNOSIS No Discharge Core Measures Meds if any: Prescribed or Continued at Discharge Meds if any: NOT Prescribed or Continued at Discharge Congestive Heart Failure Inclusion Criteria At DC or during hospital stay patient has or had the following: CHF DIAGNOSIS No Discharge Core Measures Meds if any: Prescribed or Continued at Discharge Meds if any: NOT Prescribed or Continued at Discharge Cerebrovascular accident Inclusion Criteria At DC or during hospital stay patient has or had the following: CVA/TIA Diagnosis No Discharge Core Measures Meds if any: Prescribed or Continued at Discharge Meds if any: NOT Prescribed or Continued at Discharge Venous thromboembolism Inclusion Criteria VTE Diagnosis No VTE Type NONE VTE Confirmed by (Test) NONE Discharge Core Measures - Per Current guidelines, there needs to be overlap - treatment for the first 5 days of Warfarin therapy. - If discharged on Warfarin prior to 5 days of - overlap therapy, the patient will need to be - assessed for post discharge needs including - *Post discharge parental anticoagulation - *Warfarin and/or parental anticoagulation education - *Follow up date to check INR post discharge At least 5 days overlap therapy as Inpatient No Meds if any: Prescribed or Continued at Discharge Note: Overlap Therapy is Warfarin and Anticoagulant Meds if any: NOT Prescribed or Continued at Discharge
[2017-05-24 16:00] VITALS: BP 136/70
--- NOTE | 2017-05-24 21:51 | ULTRASOUND REPORT ---
EXAMINATION: US RETROPERITONEAL COMPLETE (RENAL) CLINICAL INFORMATION: Elevated creatinine level. History of chronic kidney disease. COMPARISON: Renal ultrasound dated 03/10/2016. CT scan of the abdomen and pelvis dated 06/08/2016. TECHNIQUE: Real-time imaging of the kidneys and bladder. FINDINGS: RIGHT KIDNEY: 12.6 x 6.0 x 5.1 cm (SAG x AP x TRV). The kidney is normal in size and demonstrate slight increase in parenchymal echogenicity, consistent with medical renal disease. Lobulated contour of the kidney is seen. Renal cortical thickness is normal. In the lower pole of the right kidney, a 0.6 cm echogenic shadowing focus is seen, consistent with a nonobstructing lower pole renal calculus. No other renal calculi are seen. Several hypoechoic avascular circumscribed cysts are seen in the right kidney, including two approximately 1 cm mid right renal cysts, similar to prior exam, and a 2.5 x 2.3 x 2.2 cm (versus 2.7 x 2.5 x 2.2 cm previously) upper pole right renal cyst. The second cyst seen previously in the upper pole of the right kidney is not appreciated on today's exam. LEFT KIDNEY: 12.1 x 7.1 x 5.7 cm (SAG x AP x TRV). The kidney is normal in size, demonstrates a lobulated contour with increased echogenicity, consistent with medical renal disease. There are 2 nonobstructing mid to lower pole left renal calculi, measuring 0.9 cm and 0.4 cm. The larger of these calcifications was present previously as well and appears to be dependent milk of calcium or dependent wall calcification within a small 1.6 x 1.2 x 1.2 cm mid left renal cyst. No hydronephrosis. In the upper pole of the left kidney, a 2.5 x 2.5 x 1.8 cm simple exophytic cyst is seen, previously measuring 2.0 x 1.8 x 1.9 cm. In the mid left kidney, an exophytic 2.3 x 3.0 x 1.8 cm simple cyst is seen, not previously documented. BLADDER: Essentially decompressed and therefore suboptimally assessed, but grossly unremarkable. Bilateral ureteral jets are not demonstrated. Prevoid bladder volume is 236.1 mL. Postvoid bladder volume could not be assessed. IMPRESSION: 1. Bilateral benign-appearing renal cysts as seen, similar to the previous ultrasound. Please note, that the majority of the multiple bilateral cysts demonstrated on CT scan are not appreciated by ultrasound. 2. Lower pole right renal nonobstructing 0.6 cm calcification is seen, unchanged from prior CT scan. 3. Left renal calcifications, not appreciated on prior exam. One of these calcifications is within a cyst as described above. 4. Bladder incompletely assessed due to essentially decompressed state, but grossly unremarkable.
[2017-05-25] VITALS: BP 134/76
[2017-05-25 06:44] VITALS: BP 138/72
[2017-05-25 07:46] LABS: ABSOLUTE BASOPHIL COUNT 0 /CUMM (0.0-0.2); ABSOLUTE EOSINOPHIL COUNT 0.2 /CUMM (0.0-0.7); ABSOLUTE GRANULOCYTE CT 3.9 /CUMM (1.4-6.5); ABSOLUTE LYMPH COUNT 1.1 /CUMM (1.2-3.4); ABSOLUTE MONOCYTE COUNT 0.4 /CUMM (0.10-0.60); BASOPHIL % 0.5 % (0.0-2.0); EOSINOPHIL % 3.7 % (0-5); GRANULOCYTE % 68.5 % (42.2-75.2); HEMATOCRIT 29.5 % (42-52); MEAN CORPUSCULAR HGB 27.3 PG (27.0-31.0); MEAN CORPUSCULAR HGB CONC 33.2 G/DL (33.0-37.0); MEAN CORPUSCULAR VOLUME 82.4 FL (80.0-94.0); MEAN PLATELET VOLUME 8.9 FL (7.4-10.4); PLATELET COUNT 248 /CUMM (130-400); RBC DISTRIBUTION WIDTH 19.8 % (11.5-14.5); RED BLOOD CELL CT 3.58 /CUMM (4.70-6.10); WHITE BLOOD CELL COUNT 5.8 /CUMM (4.8-10.8)
--- NOTE | 2017-05-25 07:58 | PN- Diabetes ---
Assessment/Plan Diabetes Assessment: The patient feels okay. He is concerned that he has to begin taking insulin. The patient's blood sugars were elevated yesterday. The readings were 164 before breakfast, 301 before lunch, 402 before dinner, and 349 at bedtime. This morning his blood sugar is 296. Plan: Suggest increase Levemir to 14 units twice a day. In addition we need to increase the patient's sliding scale NovoLog. Sliding scale NovoLog before meals should be 80-150 give 6 units NovoLog, 151-200 give 8 units NovoLog, 201-250 give 9 units NovoLog, 251-300 give 10 units NovoLog, 301- 350 give 11 units NovoLog, 351-400 give 12 units NovoLog. Bedtime sliding scale NovoLog should stay the same. Subjective Subjective: Feels okay Review of Systems Constitutional: Denies: chills, fever. Cardiovascular: Denies: chest pain. Gastrointestinal: Denies: nausea, vomiting. Skin: Reports: no symptoms. Objective Last 24 Hrs of Vital Signs/I&O Vital Signs Date Time Temp Pulse Resp B/P B/P Pulse O2 O2 Flow FiO2 Mean Ox Delivery Rate 05/25 0644 98.0 71 20 138/72 95 05/25 0000 98.3 83 20 134/76 94 05/240 98.4 83 18 141/66 05/24 2041 93 Room Air Room Air 05/24 1600 98.3 70 22 136/70 94 Nasal 2.0L Cannula 05/24 0849 95 Nasal 2.0L Cannula 05/24 0800 94 Nasal 2.0L Cannula 05/24 0800 97.2 69 24 140/76 94 Nasal 2.0L Cannula Intake & Output 05/25 0800 05/25 0000 05/24 1600 Intake Total 120 930 Output Total 700 250 400 Balance -700 -130 530 Intake, IV 130 Intake, Oral 120 800 Number 0 0 Bowel Movements Output, Urine 700 250 400 Vital Signs Date Time Temp Pulse Resp B/P B/P Pulse O2 O2 Flow FiO2 Mean Ox Delivery Rate 05/25 0644 98.0 71 20 138/72 95 05/25 0000 98.3 83 20 134/76 94 05/24 2110 98.4 83 18 141/66 05/24 2041 93 Room Air Room Air 05/24 1600 98.3 70 22 136/70 94 Nasal 2.0L Cannula 05/24 0849 95 Nasal 2.0L Cannula 05/24 0800 94 Nasal 2.0L Cannula 05/24 0800 97.2 69 24 140/76 94 Nasal 2.0L Cannula Intake & Output 05/25 0800 05/25 0000 05/24 1600 Intake Total 120 930 Output Total 700 250 400 Balance -700 -130 530 Intake, IV 130 Intake, Oral 120 800 Number 0 0 Bowel Movements Output, Urine 700 250 400 Physical Exam General Appearance: alert, awake, comfortable Head: normal appearance Neck: normal inspection Respiratory: normal breath sounds Cardiovascular: regular rate/rhythm Abdomen: normal bowel sounds Extremities: normal inspection Current Medications: Current Medications Sig/Ramya Start time Last Medication Dose Route Stop Time Status Admin Albuterol Sulfate 3 ML TID 05/23 220 AC 05/24 INH 2039 Albuterol Sulfate 2 PUF Q4-6 PRN PRN 05/23 2000 AC INH Amlodipine Besylate 10 MG DAILY 05/24 1000 AC 05/24 PO 1031 Amoxicillin/ 875 MG Q12 05/24 1048 AC 05/24 Clavulanate Potassium PO 2107 Aspirin 81 MG DAILY 05/24 1000 AC 05/24 PO 1030 Atorvastatin Calcium 20 MG DAILY 05/24 1000 AC 05/24 PO 1030 Budesonide/ 2 PUF BID 05/23 2200 AC 05/24 Formoterol Fumarate INH 2106 Diltiazem HCl 180 MG DAILY 05/24 1000 AC 05/24 PO 1030 Doxazosin Mesylate 1 MG DAILY 05/24 1000 AC 05/24 PO 1030 Famotidine 20 MG DAILY 05/24 1000 DC PO Heparin Sodium 5,000 UNIT Q8 05/25 0600 AC 05/25 (Porcine) [place] 0616 Insulin Aspart 0 AT BEDTIME 05/24 2200 AC 05/24 [place] 2114 Insulin Aspart 0 TIDAC 05/24 0800 AC 05/24 SC 1700 Insulin Detemir 10 UNITS BID 05/24 1000 AC 05/24 [place] 2114 Melatonin 5 MG AT BEDTIME 05/24 2200 AC 05/24 PO 0004 Metoprolol Tartrate 50 MG BID 05/23 2200 AC 05/24 PO 2110 Omeprazole 40 MG DAILY AC 05/24 0700 AC 05/25 PO 0615 Findings Pertinent Lab/Darnell Results: Laboratory Tests 05/25 0628 Chemistry Sodium Pending Potassium Pending Chloride Pending Carbon Dioxide Pending Anion Gap Pending BUN Pending Creatinine Pending Glucose Pending Calcium Pending Phosphorus Pending Magnesium Pending Total Bilirubin Pending AST Pending ALT Pending Albumin Pending Hematology CBC w Diff Pending WBC Pending RBC Pending Hgb Pending Hct Pending MCV Pending MCH Pending MCHC Pending RDW Pending Plt Count Pending MPV Pending
--- NOTE | 2017-05-25 08:22 | PN- Housestaff ---
Parker Romero MD,Ami 05/25/17 0822: Subjective Follow-up For: HHS mastoiditis noted on CT Chronic OM Subjective: Patient visited today, was lying in bed comfortabely in no acute distress, was alert and oriented. No fever or chills, NO SOB or chest pain. Reported improved mental condition to his baseline. Still had decreased hearing in the left side. Planned to continue Augmentin for 7 days, discharge on Insuline due to CKD for DM. Review of Systems Constitutional: Reports: see HPI. Objective Last 24 Hrs of Vital Signs/I&O Vital Signs Date Time Temp Pulse Resp B/P B/P Pulse O2 O2 Flow FiO2 Mean Ox Delivery Rate 05/25 0915 70 140/80 05/25 0829 95 Room Air Room Air 05/25 0644 98.0 71 20 138/72 95 05/25 0000 98.3 83 20 134/76 94 05/24 2110 98.4 83 18 141/66 05/24 2042 93 Room Air Room Air 05/24 1600 98.3 70 22 136/70 94 Nasal 2.0L Cannula Intake & Output 05/25 1600 05/25 0800 05/25 0000 Intake Total 120 Output Total 700 250 Balance -700 -130 Intake, Oral 120 Number 0 Bowel Movements Output, Urine 700 250 Physical Exam General Appearance: Alert, Oriented X3, Cooperative, No Acute Distress Skin: No Significant Lesion Skin Temp/Moisture Exam: Warm/Dry Cardiovascular: Regular Rate, Normal S1, Normal S2 Lungs: Clear to Auscultation Abdomen: Soft, No Tenderness Neurological: Normal Speech Extremities: No Edema Current Medications: Current Medications Sig/Ramya Start time Last Medication Dose Route Stop Time Status Admin Albuterol Sulfate 3 ML TID 05/23 2199 AC 05/25 INH 0823 Albuterol Sulfate 2 PUF Q4-6 PRN PRN 05/23 2000 AC INH Amlodipine Besylate 10 MG DAILY 05/24 1000 AC 05/25 PO 0915 Amoxicillin/ 875 MG Q12 05/24 1048 AC 05/25 Clavulanate Potassium PO 0916 Aspirin 81 MG DAILY 05/24 1000 AC 05/25 PO 0916 Atorvastatin Calcium 20 MG DAILY 05/24 1000 AC 05/25 PO 0915 Budesonide/ 2 PUF BID 05/23 2200 AC 05/25 Formoterol Fumarate INH 0916 Diltiazem HCl 180 MG DAILY 05/24 1000 AC 05/25 PO 0916 Doxazosin Mesylate 1 MG DAILY 05/24 1000 AC 05/25 PO 0916 Famotidine 20 MG DAILY 05/24 1000 DC PO Heparin Sodium 5,000 UNIT Q8 05/25 0600 AC 05/25 (Porcine) [place] 0616 Insulin Aspart 0 AT BEDTIME 05/24 2200 AC 05/24 SC 2114 Insulin Aspart 0 TIDAC 05/24 0800 AC 05/25 SC 0818 Insulin Detemir 14 UNITS BID 05/25 1000 AC SC Insulin Detemir 4 UNITS ONCE ONE 05/25 0930 DC SC 05/25 0931 Insulin Detemir 10 UNITS BID 05/24 1000 DC 05/25 SC 0819 Melatonin 5 MG AT BEDTIME 05/24 2200 AC 05/24 PO 0004 Metoprolol Tartrate 50 MG BID 05/23 2200 AC 05/25 PO 0915 Omeprazole 40 MG DAILY AC 05/24 0700 AC 05/25 PO 0615 Polyethylene Glycol 17 GM DAILY PRN 05/25 0830 AC PO Senna/Docusate Sodium 1 TAB BID PRN 05/25 0830 AC PO Last 24 Hrs of Lab/Darnell Results Last 24 Hrs of Labs/Mics: Laboratory Tests 05/25/17 0628: Anion Gap 14, Estimated GFR 39 L, Glucose 300 H, Calcium 9.0, Phosphorus 3.1, Magnesium 1.8, Total Bilirubin 0.3, AST 12 L, ALT 22, Albumin 3.2 L, CBC w Diff NO MAN DIFF REQ, RBC 3.58 L, MCV 82.4, MCH 27.3, MCHC 33.2, RDW 19.8 H, MPV 8.9, Gran % 68.5, Lymphocytes % 19.8 L, Monocytes % 7.5, Eosinophils % 3.7, Basophils % 0.5, Absolute Granulocytes 3.9, Absolute Lymphocytes 1.1 L, Absolute Monocytes 0.4, Absolute Eosinophils 0.2, Absolute Basophils 0 Assessment/Plan Assessment: 76-year-old gentleman presented with altered mental status PMH: CAD status post CABG for 20 years ago, COPD not on home O2, HTN, HLD, BPH, pre-diabetes, h/o afib In the ED was noted to be hyperglycemic to 819, with normal anion gap. Head CT scan was done: 1. There are no acute bleeds or territorial infarcts. 2. There are is mild volume loss and there are sequelae of chronic microvascular ischemic disease. 3. There is fluid in the bilateral mastoid air cells and in the left middle ear cavity. Patient was admitted to ICU initially and with improvement of codition was trasnferred to GM floor. Managment for following conditions was done. HHS: Pt labs much improved. Last FS 164, 178, 221, 203, 238. No gap, bicarb WNL. Pt was initially on insulin drip and has since transitioned to SQ regimen. Per Dr. Hernandez, due to stage IV CKD pt is not candidate for oral hypoglycemics and will need to be taught how to take insulin. Pt not on any home diabetic regimen previously as he was only diagnosed with pre-diabetes. * Appreciate Endo recs * Pt switched to SQ regimen per Endo * Insuline regimen updated per Endo Ear infection Pt has known chronic otitis media. CT head, done on admission for eval of AMS, showed fluid in l. middle ear and bialt mastoids. There was concern that this was precipitant for Hyperosmolar hyperglycemic state. Has seen Dr. Cuba previously and had tympanostomy tube in l. ear. Per Dr. Fam who saw pt in hospital there is currently no indication for acute intervention. Pt can continue with a total of one week of antibiotics and then follow up outpatient for further eval. * Zosyn started on 05/23/2016 * Appreciate ENT consult * Currently on PO Augmentin for total 7 days Anemia: Pt has known hx of anemia. He is around his baseline. Double scope on May 19 showed polyps, diverticulosis, mixed hemorrhoidal disease, and erosive gastritis. * Con't monitor * GI ppx BRANDEE on CKD: Cr was 2.3 on admission today down to 1.7. Looks to be back around his baseline. * Monitor renal function * Avoid nephrotoxins HTN: Con't home reg * Cardura 1mg daily * Amlodipine 10mg * Lopressor 50mg BID CAD: Last echo in showed normal left ventricular systolic function. Mild LVH. Moderate LAE. Moderate TR with mild Pulmonary hypertension RVSP at 45mmHg * ASA 81 * Statin AFIB: * Diltiazem CD 180mg FC Chem ppx CC1 Diet Problem List: 1. Diabetes 2. Otitis media Pain Ratin Pain Location: No pain Pain Goal: Pain 4 or less Pain Plan: continue current plan Tomorrow's Labs & Rationales: CBC BEP Alina Barrett 05/25/17 1213: Attending MD Review Statement Attending Statement Attending MD Statement: examined this patient, discuss w/resident/PA/WATCH INSPECTOR FINAL [employer]OVEMENT, agreed w/resident/PA/WATCH INSPECTOR FINAL [employer]OVEMENT, discussed with family, reviewed EMR data (avail), discussed with nursing, discussed with case mgmt, reviewed images, amended to note Attending Assessment/Plan: 76 y/o M with pmh sig for CAD status post CABG for 20 years ago, COPD not on home O2 or chronic steroid, HTN, HLD, BPH admitted with altered mental status likely secondary to hyperglycemia, hyperosmolar state, otitis media with mastoiditis. Patient currently is off of insulin drip and has been started on subcutaneous insulin per endocrinology recommendations. Initially was given Zosyn. Has been seen by ENT and they did not recommend performing any acute surgical interventions. As discussed with housestaff, Dr. Penaloza has discussed with housestaff about starting the patient on Augmentin. We'll do a total of seven- day course of antibiotics. Patient will need insulin teaching. He has been downgraded to general medicine floor. He will need an outpatient follow-up with endocrinology as well as ENT Dr. Cuba. Continue the rest of the medications. Anticipate dc in next 24-48 hrs.
[2017-05-25 14:40] VITALS: BP 134/70
[2017-05-25] MEDS ORDERED: LEVEMIR100 UNIT/1 SC (15:05)
[2017-05-25] MEDS ORDERED: AMOX-CLAV 875-1 EACH PO (15:05)
[2017-05-25] MEDS ORDERED: NOVOLOG100 UNIT/2 SC ×2 (15:05)
[2017-05-25 21:57] VITALS: BP 136/68
[2017-05-26 06:25] VITALS: BP 138/70
--- NOTE | 2017-05-26 07:39 | PN- Diabetes ---
Assessment/Plan Diabetes Assessment: Patient feels okay. His blood sugars have been running high however. His fingerstick sugars yesterday were 296 before breakfast, 368 before lunch, 286 before dinner, and 323 at bedtime. He is presently on Levemir 14 units twice a day and sliding scale NovoLog starting with 6 units for a good sugar of 80-150. Plan: Suggest increase Levemir to 16 units twice a day. Continue present sliding scale NovoLog. Increase activity. Subjective Subjective: Feels okay Review of Systems Constitutional: Denies: chills, fever. Cardiovascular: Denies: chest pain. Respiratory: Denies: short of breath. Gastrointestinal: Denies: nausea, vomiting. Skin: Reports: no symptoms. Objective Last 24 Hrs of Vital Signs/I&O Vital Signs Date Time Temp Pulse Resp B/P B/P Pulse O2 O2 Flow FiO2 Mean Ox Delivery Rate 05/26 0625 97.7 72 20 138/70 92 05/25 2202 74 136/68 05/25 2156 97.7 74 18 136/68 94 05/25 2050 93 Room Air Room Air 05/25 1440 97.9 78 20 134/70 93 Room Air 05/25 0915 70 140/80 05/25 0829 95 Room Air Room Air Intake & Output 05/26 0800 05/26 0000 05/25 1600 Intake Total 240 1220 920 Output Total 900 650 Balance 240 320 270 Intake, IV 20 20 Intake, Oral 240 1200 900 Number 0 0 Bowel Movements Output, Urine 900 650 Patient 220 lb Weight Vital Signs Date Time Temp Pulse Resp B/P B/P Pulse O2 O2 Flow FiO2 Mean Ox Delivery Rate 05/26 0625 97.7 72 20 138/70 92 05/253 74 136/68 05/25 2156 97.7 74 18 136/68 94 05/25 2050 93 Room Air Room Air 05/25 1440 97.9 78 20 134/70 93 Room Air 05/25 0915 70 140/80 05/25 0829 95 Room Air Room Air Intake & Output 05/26 0800 05/26 0000 05/25 1600 Intake Total 240 1220 920 Output Total 900 650 Balance 240 320 270 Intake, IV 20 20 Intake, Oral 240 1200 900 Number 0 0 Bowel Movements Output, Urine 900 650 Patient 220 lb Weight Physical Exam General Appearance: alert, awake, comfortable Head: normal appearance Respiratory: normal breath sounds Cardiovascular: regular rate/rhythm Abdomen: normal bowel sounds Extremities: normal inspection Current Medications: Current Medications Sig/Ramya Start time Last Medication Dose Route Stop Time Status Admin Albuterol Sulfate 3 ML TID 05/23 2199 AC 05/25 INH 2050 Albuterol Sulfate 2 PUF Q4-6 PRN PRN 05/23 2000 AC INH Amlodipine Besylate 10 MG DAILY 05/24 1000 AC 05/25 PO 0915 Amoxicillin/ 875 MG Q12 05/24 1048 AC 05/25 Clavulanate Potassium PO 220 Aspirin 81 MG DAILY 05/24 1000 AC 05/25 PO 0916 Atorvastatin Calcium 20 MG DAILY 05/24 1000 AC 05/25 PO 0915 Budesonide/ 2 PUF BID 05/23 220 AC 05/25 Formoterol Fumarate INH 2202 Diltiazem HCl 180 MG DAILY 05/24 1000 AC 05/25 PO 0916 Doxazosin Mesylate 1 MG DAILY 05/24 1000 AC 05/25 PO 0916 Heparin Sodium 5,000 UNIT Q8 05/25 0600 AC 05/26 (Porcine) [place] 0503 Insulin Aspart 0 AT BEDTIME 05/24 2199 AC 05/25 SC 2201 Insulin Aspart 0 TIDAC 05/24 0800 AC 05/25 SC 1656 Insulin Detemir 14 UNITS BID 05/25 1000 AC 05/25 SC 2201 Insulin Detemir 4 UNITS ONCE ONE 05/25 0930 DC 05/25 SC 05/25 0931 0958 Insulin Detemir 10 UNITS BID 05/24 1000 DC 05/25 SC 0819 Melatonin 5 MG AT BEDTIME 05/240 AC 05/25 PO 2202 Metoprolol Tartrate 50 MG BID 05/23 2200 AC 05/25 PO 2203 Omeprazole 40 MG DAILY AC 05/24 0700 AC 05/26 PO 0503 Patient Medication 1 ED ONE ONE 05/25 1445 DC 05/25 Teaching ED 05/25 1446 1450 Polyethylene Glycol 17 GM DAILY PRN 05/25 0830 AC 05/25 PO 0958 Senna/Docusate Sodium 1 TAB BID PRN 05/25 0830 AC PO
[2017-05-26 07:59] LABS: ABSOLUTE BASOPHIL COUNT 0 /CUMM (0.0-0.2); ABSOLUTE EOSINOPHIL COUNT 0.2 /CUMM (0.0-0.7); ABSOLUTE GRANULOCYTE CT 3.3 /CUMM (1.4-6.5); ABSOLUTE LYMPH COUNT 1.3 /CUMM (1.2-3.4); ABSOLUTE MONOCYTE COUNT 0.4 /CUMM (0.10-0.60); BASOPHIL % 0.4 % (0.0-2.0); EOSINOPHIL % 3.7 % (0-5); GRANULOCYTE % 63.1 % (42.2-75.2); HEMATOCRIT 28.8 % (42-52); MEAN CORPUSCULAR HGB 27.3 PG (27.0-31.0); MEAN CORPUSCULAR HGB CONC 33.2 G/DL (33.0-37.0); MEAN CORPUSCULAR VOLUME 82.3 FL (80.0-94.0); MEAN PLATELET VOLUME 8.7 FL (7.4-10.4); PLATELET COUNT 243 /CUMM (130-400); RBC DISTRIBUTION WIDTH 19.7 % (11.5-14.5); WHITE BLOOD CELL COUNT 5.3 /CUMM (4.8-10.8)
--- NOTE | 2017-05-26 08:25 | PN- Housestaff ---
Parker Romero MD,Ami 05/26/17 0825: Subjective Follow-up For: HHS/DM mastoiditis noted on CT Chronic OM Subjective: Patient visited today, was sitting bed comfortably in no acute distress, was alert and oriented. No fever or chills, no shortness of breathing, no chest pain, no other events. Blood sugars are still in 300s, we increased detemir per endo, plan to DC patient tomorrow with improvement. Review of Systems Constitutional: Reports: see HPI. Objective Last 24 Hrs of Vital Signs/I&O Vital Signs Date Time Temp Pulse Resp B/P B/P Pulse O2 O2 Flow FiO2 Mean Ox Delivery Rate 05/26 0625 97.7 72 20 138/70 92 05/25 220 74 136/68 05/25 2157 97.7 74 18 136/68 94 05/25 2050 93 Room Air Room Air 05/25 1440 97.9 78 20 134/70 93 Room Air 05/25 0915 70 140/80 Intake & Output 05/26 1600 05/26 0800 05/26 0000 Intake Total 240 1220 Output Total 900 Balance 240 320 Intake, IV 20 Intake, Oral 240 1200 Number 0 Bowel Movements Output, Urine 900 Physical Exam General Appearance: Alert, Oriented X3, Cooperative, No Acute Distress Skin: No Rashes Skin Temp/Moisture Exam: Warm/Dry Sepsis Skin Exam (color): Normal for Ethnicity HEENT: Atraumatic, EOMI, Mucous Membr. moist/pink Cardiovascular: Normal S1, Normal S2 Lungs: Clear to Auscultation Abdomen: Soft, No Tenderness Neurological: Normal Speech, Strength at 5/5 X4 Ext Extremities: No Edema Current Medications: Current Medications Sig/Ramya Start time Last Medication Dose Route Stop Time Status Admin Albuterol Sulfate 3 ML TID 05/23 2199 AC 05/26 INH 0822 Albuterol Sulfate 2 PUF Q4-6 PRN PRN 05/23 1999 AC INH Amlodipine Besylate 10 MG DAILY 05/24 1000 AC 05/26 PO 0855 Amoxicillin/ 875 MG Q12 05/24 1048 AC 05/26 Clavulanate Potassium PO 0855 Aspirin 81 MG DAILY 05/24 1000 AC 05/26 PO 0855 Atorvastatin Calcium 20 MG DAILY 05/24 1000 AC 05/26 PO 0855 Budesonide/ 2 PUF BID 05/23 2199 AC 05/26 Formoterol Fumarate INH 0855 Diltiazem HCl 180 MG DAILY 05/24 1000 AC 05/26 PO 0855 Doxazosin Mesylate 1 MG DAILY 05/24 1000 AC 05/26 PO 0855 Heparin Sodium 5,000 UNIT Q8 05/25 0600 AC 05/26 (Porcine) SC 0503 Insulin Aspart 0 AT BEDTIME 05/24 2200 AC 05/25 SC 2201 Insulin Aspart 0 TIDAC 05/24 0800 AC 05/26 SC 0758 Insulin Detemir 16 UNITS BID 05/26 2200 AC SC Insulin Detemir 2 UNITS ONCE ONE 05/26 0830 DC 05/26 SC 05/26 0831 0854 Insulin Detemir 14 UNITS BID 05/25 1000 DC 05/26 SC 0757 Insulin Detemir 4 UNITS ONCE ONE 05/25 0930 DC 05/25 SC 05/25 0931 0958 Insulin Detemir 10 UNITS BID 05/24 1000 DC 05/25 SC 0819 Melatonin 5 MG AT BEDTIME 05/24 2200 AC 05/25 PO 2202 Metoprolol Tartrate 50 MG BID 05/23 2200 AC 05/26 PO 0855 Omeprazole 40 MG DAILY AC 05/24 0700 AC 05/26 PO 0503 Patient Medication 1 ED ONE ONE 05/25 1445 DC 05/25 Teaching ED 05/25 1446 1450 Polyethylene Glycol 17 GM DAILY PRN 05/25 0830 AC 05/26 PO 0854 Senna/Docusate Sodium 1 TAB BID PRN 05/25 0830 AC PO Last 24 Hrs of Lab/Darnell Results Last 24 Hrs of Labs/Mics: Laboratory Tests 05/26/17 0618: Anion Gap 12, Estimated GFR 37 L, BUN/Creatinine Ratio 15.6, CBC w Diff NO MAN DIFF REQ, RBC 3.50 L, MCV 82.3, MCH 27.3, MCHC 33.2, RDW 19.7 H, MPV 8.7, Gran % 63.1, Lymphocytes % 24.3, Monocytes % 8.5, Eosinophils % 3.7, Basophils % 0.4, Absolute Granulocytes 3.3, Absolute Lymphocytes 1.3, Absolute Monocytes 0.4, Absolute Eosinophils 0.2, Absolute Basophils 0 Assessment/Plan Assessment: 76-year-old gentleman presented with altered mental status PMH: CAD status post CABG for 20 years ago, COPD not on home O2, HTN, HLD, BPH, pre-diabetes, h/o afib In the ED was noted to be hyperglycemic to 819, with normal anion gap. Head CT scan was done: 1. There are no acute bleeds or territorial infarcts. 2. There are is mild volume loss and there are sequelae of chronic microvascular ischemic disease. 3. There is fluid in the bilateral mastoid air cells and in the left middle ear cavity. Patient was admitted to ICU initially, IV insuline was administered and with improvement of blood sugar level patient was trasnferred to [facility] floor to continue managment of following conditions: HHS: Pt not on any home diabetic regimen previously as he was only diagnosed with pre -diabetes. Initial blood sugar was in ~800. Patient recieved IV insuline, with improvement management was constinued with sc insuline. Per Dr. Hernandez, due to stage IV CKD pt is not candidate for oral hypoglycemics and will need to be taught how to take insulin. insuline dose adjusted per accuchecks. - Increase levemir - plan to discharge on insuline tomorrow Ear infection Pt has known chronic otitis media. CT head, done on admission for eval of AMS, showed fluid in l. middle ear and bialt mastoids. Patient followed Dr. Cuba previously and had tympanostomy tube in ear. Per Dr. Fam who saw pt in hospital there is currently no indication for acute intervention. It was planned to continue with a total of one week of antibiotics and then follow up outpatient for further eval. Patient was administered zosyn initially. It was planned to continue PO Augmentin for total 7 day. - Continue PO augmentin Chronic medical problems: Anemia, Pt has known hx of anemia. He is around his baseline. Double scope on May 19 showed polyps, diverticulosis, mixed hemorrhoidal disease, and erosive gastritis. Patient will follow in outpatient. BRANDEE on CKD Cr was 2.3 on admission today down to 1.7. Looks to be back around his baseline. - continue to monitor and avoid nephrotoxic agents History of chronic medical problems: HTN, CAD, afib Last echo in showed normal left ventricular systolic function. Mild LVH. Moderate LAE. Moderate TR with mild Pulmonary hypertension RVSP at 45mmHg, Con't home reg We continued home medication. - Cardura 1mg daily - Amlodipine 10mg - Lopressor 50mg BID - ASA 81 - Statin - Diltiazem CD 180mg FC Chem ppx CC1 Diet Problem List: 1. Diabetes 2. Otitis media Pain Ratin Pain Location: none Pain Goal: Pain 4 or less Pain Plan: continue current plan Tomorrow's Labs & Rationales: BEP Alina Barrett 05/26/17 1110: Attending MD Review Statement Attending Statement Attending MD Statement: examined this patient, discuss w/resident/PA/BASEBALL GLOVE STUFFER, agreed w/resident/PA/BASEBALL GLOVE STUFFER, discussed with family, reviewed EMR data (avail), discussed with nursing, discussed with case mgmt, reviewed images, amended to note Attending Assessment/Plan: 76 y/o M with pmh sig for CAD status post CABG for 20 years ago, COPD not on home O2 or chronic steroid, HTN, HLD, BPH admitted with altered mental status likely secondary to hyperglycemia, hyperosmolar state, otitis media with mastoiditis. Patient currently is off of insulin drip and has been started on subcutaneous insulin per endocrinology recommendations. Initially was given Zosyn. Has been seen by ENT and they did not recommend performing any acute surgical interventions. Po augmentin. We'll do a total of seven-day course of antibiotics. Patient given insulin teaching. He will need an outpatient follow -up with endocrinology as well as ENT Dr. Cuba. Continue the rest of the medications. Anticipate dc in next 24 hrs. interventions. Po augmentin. We'll do a total of seven-day course of antibiotics. Patient given insulin teaching. He will need an outpatient follow -up with endocrinology as well as ENT Dr. Cuba. Continue the rest of the medications. Anticipate dc in next 24 hrs.
[2017-05-26 13:33] VITALS: BP 136/74
--- NOTE | 2017-05-26 14:22 | Discharge Summary ---
Visit Information Visit Dates Admission Date: 05/23/17 Discharge Date: 05/27/17 Hospital Course Course Attending Physician: Alina Barrett MD Primary Care Physician: Cory Duron MD Hospital Course: 76-year-old gentleman presented with altered mental status PMH: CAD status post CABG for 20 years ago, COPD not on home O2, HTN, HLD, BPH, pre-diabetes, h/o afib In the ED was noted to be hyperglycemic to 819, with normal anion gap. Head CT scan was done: 1. There are no acute bleeds or territorial infarcts. 2. There are is mild volume loss and there are sequelae of chronic microvascular ischemic disease. 3. There is fluid in the bilateral mastoid air cells and in the left middle ear cavity. Patient was admitted to ICU initially, IV insuline was administered and with improvement of blood sugar level patient was trasnferred to GM floor to continue managment of following conditions: HHS: Pt not on any home diabetic regimen previously as he was only diagnosed with pre -diabetes. Initial blood sugar was in ~800. Patient recieved IV insuline, with improvement management was constinued with sc insuline. Per Dr. Hernandez, due to stage IV CKD pt is not candidate for oral hypoglycemics and will need to be taught how to take insulin. insuline dose adjusted per accuchecks. Ear infection Pt has known chronic otitis media. CT head, done on admission for eval of AMS, showed fluid in l. middle ear and bialt mastoids. Patient followed Dr. Cuba previously and had tympanostomy tube in ear. Per Dr. Fam who saw pt in hospital there is currently no indication for acute intervention. It was planned to continue with a total of one week of antibiotics and then follow up outpatient for further eval. Patient was administered zosyn initially. It was planned to continue PO Augmentin for total 7 day. Chronic medical problems: Anemia, Pt has known hx of anemia. He is around his baseline. Double scope on May 19 showed polyps, diverticulosis, mixed hemorrhoidal disease, and erosive gastritis. Patient will follow in outpatient. BRANDEE on CKD Cr was 2.3 on admission today down to 1.7. Looks to be back around his baseline. History of chronic medical problems: HTN, CAD, afib Last echo in showed normal left ventricular systolic function. Mild LVH. Moderate LAE. Moderate TR with mild Pulmonary hypertension RVSP at 45mmHg, Con't home reg We continued home medication. - Cardura 1mg daily - Amlodipine 10mg - Lopressor 50mg BID - ASA 81 - Statin - Diltiazem CD 180mg With improvement of condition patient was discharged with recommendations below. Allergies: Coded Allergies: NO KNOWN ALLERGIES (NONE 05/24/17) Significant Procedures: None Disposition Summary Disposition Principal Diagnosis: Hyperglycemic hyperosmular state Additional Diagnosis: Chronic otitis Discharge Disposition: home or self care Discharge Instructions General Discharge Information Code Status: Full Code Patient's Diet: Diabetic Patient's Activity: Self limited, increase activity Follow-Up Instructions/Appts: Please follow-up with your PCP within one week of discharge. Please follow-up with your motor power connector within 1 week of discharge. Please follow-up with your ENT specialist within 1 week of discharge. Please take your [facility] and [facility] symptoms worsen. Medications at Discharge Discharge Medications: Continue taking these medications: Atorvastatin Calcium (Lipitor) 20 MG TABLET 1 Tablet ORAL DAILY Comments: Last Taken:05/27/17 Time: 0800AM Amlodipine Besylate (Amlodipine Besylate) 10 MG TABLET 1 Tablet ORAL DAILY Comments: Last Taken: 05/27/17 Time: 0800AM Aspirin (Children's Aspirin) 81 MG TAB.CHEW 1 Tablet ORAL DAILY Comments: Last Taken: 05/27/17 Time: 0800AM Doxazosin Mesylate (Doxazosin Mesylate) 1 MG TABLET 1 Tablet ORAL DAILY Qty = 30 Comments: Last Taken: 05/27/17 Time: 0800AM Albuterol Sulfate (Proair Hfa) 90 MCG HFA.AER.AD 2 Puff Inhale through mouth EVERY 4-6 HOURS NEEDED as needed for COPD Comments: NOT GIVEN Ipratropium/Albuterol Sulfate (Iprat-Albut 0.5-3(2.5) MG/3 Ml) 0.5 MG-3 MG (2.5 MG BASE)/3 ML AMPUL.NEB 1 VIAL Inhale through mouth EVERY 6 HOURS NEEDED as needed for COPD Comments: NOT GIVEN Famotidine (Pepcid) 20 MG TABLET 1 Tablet ORAL DAILY Qty = 14 Comments: NOT GIVEN IN HOSPITAL Diltiazem HCl (Cardizem Cd) 180 MG CAP.ER.24H 1 Capsule ORAL DAILY Qty = 30 Instructions: . Comments: Last Taken: 05/27/17 Time: 0800AM Metoprolol Tartrate (Metoprolol Tartrate) 50 MG TABLET 1 Tablet ORAL TWICE DAILY Qty = 60 Comments: Last Taken: 05/27/17 Time: 0800AM Ferrous Sulfate (Slow Fe) 142 MG (45 MG IRON) TABLET.ER 1 Tablet ORAL DAILY Comments: NOT GIVEN IN HOSPITAL Budesonide/Formoterol Fumarate (Symbicort 160-4.5 Mcg Inhaler) 160 MCG-4.5 MCG/ ACTUATION HFA.AER.AD 2 Puff Inhale through mouth TWICE DAILY Comments: Last Taken: 05/27/17 Time: 0800AM Levalbuterol HCl (Xopenex) 0.63 MG/3 ML VIAL.NEB 1 Vial Inhale Solution THREE TIMES DAILY Comments: NOT GIVEN IN HOSPITAL Omeprazole (Omeprazole) 40 MG CAPSULE.DR 1 Capsule ORAL DAILY Qty = 90 Comments: Last Taken: 05/27/17 Time: 0600AM Nystatin (Nystatin) 100,000 UNIT/GRAM CREAM..G. 1 Application On the skin TWICE DAILY Qty = 15 Instructions: apply to affected area(s) Comments: NOT GIVEN Triamcinolone Acetonide (Triamcinolone Acetonide) 0.1 % OINT...G. 1 Application On the skin TWICE DAILY Qty = 15 Instructions: apply to affected area(s) Comments: NOT GIVEN Start taking the following new medications: Insulin Detemir (Levemir) 100 UNIT/ML VIAL 16 Units Inject into fatty tissue TWICE DAILY Qty = 20 Refills = 1 Comments: Last Taken:05/27/17 Time: 0800AM Insulin Aspart (Novolog) 100 UNIT/ML VIAL 0 Units Inject into fatty tissue AT BEDTIME Qty = 15 No Refills Instructions: Bedtime sliding scale: . less than 250 mg/dl: give no insulin 251-300 mg/dl: give 2 units 301-350 mg/dl: give 3 units 351-400 mg/dl: give 4 units Comments: Last Taken: 05/26/17 Time: 2200PM Insulin Aspart (Novolog) 100 UNIT/ML VIAL 0 Units Inject into fatty tissue 3 TIMES DAILY BEFORE MEALS Qty = 15 Refills = 1 Instructions: Sliding scale NovoLog before meals: 80-150 mg/dl: give 6 units 151-200 mg/dl: give 8 units 201-250 mg/dl: give 9 units 251-300 mg/dl: give 10 units 301-350 mg/dl: give 11 units 351-400 mg/dl: give 12 units and call PCP . Comments: Last Taken:05/27/17 Time: 1200PM Amoxicillin/Clavulanate Potass (Amox-Clav 875-125 MG Tablet) 875 MG-125 MG TABLET 875 Milligram ORAL EVERY 12 HOURS Qty = 8 No Refills Comments: Last Taken:05/27/17 Time: 0800AM Copies To: Bereket CLEMENTE,Crissy Weber; David CLEMENTE,Anuj Luna; Oliverio CLEMENTE,Cory Romero Attending MD Review Statement Documenting Attending: Alina Barrett MD Other Findings: Patient denies any new complaints. Insulin administration teaching provided. Diabetes education. Endocrinology follow up at discharge. Patient medically stable.
[2017-05-26 21:42] VITALS: BP 130/70
[2017-05-27 07:05] VITALS: BP 144/84
--- NOTE | 2017-05-27 07:30 | PN- Housestaff ---
Parker Romero MD,Ami 05/27/17 0729: Subjective Follow-up For: HHS/DM mastoiditis noted on CT Chronic OM Subjective: Patient visited today, was sitting bed comfortably in no acute distress, was alert and oriented. No fever or chills, no shortness of breathing, no chest pain, no other events. Blood sugars are more controlled between 100-200, patient was planned to be discharged. Review of Systems Constitutional: Reports: see HPI. Objective Last 24 Hrs of Vital Signs/I&O Vital Signs Date Time Temp Pulse Resp B/P B/P Pulse O2 O2 Flow FiO2 Mean Ox Delivery Rate 05/27 0848 95 Room Air 05/27 0833 78 144/80 05/27 0705 97.5 80 18 144/84 95 05/26 2142 98.2 79 19 130/70 91 Room Air 05/26 2114 79 130/70 05/26 2051 94 Room Air Room Air 05/26 1600 91 Room Air 05/26 1333 98.3 62 20 136/74 91 Room Air Intake & Output 05/27 1600 05/27 0800 05/27 0000 Intake Total 240 860 Output Total Balance 240 860 Intake, IV 20 Intake, Oral 240 840 Physical Exam General Appearance: Alert, Oriented X3, Cooperative, No Acute Distress Skin Temp/Moisture Exam: Warm/Dry Sepsis Skin Exam (color): Normal for Ethnicity HEENT: Atraumatic, EOMI, Mucous Membr. moist/pink Cardiovascular: Regular Rate, Normal S1, Normal S2 Lungs: Clear to Auscultation Abdomen: Soft, No Tenderness Neurological: Normal Speech Extremities: No Edema Current Medications: Current Medications Sig/Ramya Start time Last Medication Dose Route Stop Time Status Admin Albuterol Sulfate 3 ML TID 05/23 2199 AC 05/27 INH 0824 Albuterol Sulfate 2 PUF Q4-6 PRN PRN 05/23 2000 AC INH Amlodipine Besylate 10 MG DAILY 05/24 1000 AC 05/27 PO 0833 Amoxicillin/ 875 MG Q12 05/24 1048 AC 05/27 Clavulanate Potassium PO 0833 Aspirin 81 MG DAILY 05/24 1000 AC 05/27 PO 0833 Atorvastatin Calcium 20 MG DAILY 05/24 1000 AC 05/27 PO 0833 Budesonide/ 2 PUF BID 05/23 2199 AC 05/27 Formoterol Fumarate INH 0832 Diltiazem HCl 180 MG DAILY 05/24 1000 AC 05/27 PO 0833 Doxazosin Mesylate 1 MG DAILY 05/24 1000 AC 05/27 PO 0833 Heparin Sodium 5,000 UNIT Q8 05/25 0600 AC 05/27 (Porcine) SC 0517 Insulin Aspart 0 AT BEDTIME 05/24 2200 AC 05/25 SC 2201 Insulin Aspart 0 TIDAC 05/24 0800 AC 05/27 SC 1205 Insulin Detemir 16 UNITS BID 05/26 2200 AC 05/27 SC 0817 Melatonin 5 MG AT BEDTIME 05/24 2200 AC 05/26 PO 2114 Metoprolol Tartrate 50 MG BID 05/23 2200 AC 05/27 PO 0833 Omeprazole 40 MG DAILY AC 05/24 0700 AC 05/27 PO 0517 Patient Medication 1 ED ONE ONE 05/27 1130 DC 05/27 Teaching ED 05/27 1131 1205 Polyethylene Glycol 17 GM DAILY PRN 05/25 0830 AC 05/26 PO 0854 Senna/Docusate Sodium 1 TAB BID PRN 05/25 0730 AC 05/26 PO 4 Last 24 Hrs of Lab/Darnell Results Last 24 Hrs of Labs/Mics: Laboratory Tests 05/27/17 0553: Anion Gap 11, Estimated GFR 37 L, BUN/Creatinine Ratio 15.0 Assessment/Plan Assessment: 76-year-old gentleman presented with altered mental status PMH: CAD status post CABG for 20 years ago, COPD not on home O2, HTN, HLD, BPH, pre-diabetes, h/o afib In the ED was noted to be hyperglycemic to 819, with normal anion gap. Head CT scan was done: 1. There are no acute bleeds or territorial infarcts. 2. There are is mild volume loss and there are sequelae of chronic microvascular ischemic disease. 3. There is fluid in the bilateral mastoid air cells and in the left middle ear cavity. Patient was admitted to ICU initially, IV insuline was administered and with improvement of blood sugar level patient was trasnferred to floor to continue managment of following conditions: HHS: Pt not on any home diabetic regimen previously as he was only diagnosed with pre -diabetes. Initial blood sugar was in ~800. Patient recieved IV insuline, with improvement management was constinued with sc insuline. Per Dr. Hernandez, due to stage IV CKD pt is not candidate for oral hypoglycemics and will need to be taught how to take insulin. insuline dose adjusted per accuchecks. - Increase levemir - plan to discharge on insuline tomorrow Ear infection Pt has known chronic otitis media. CT head, done on admission for eval of AMS, showed fluid in l. middle ear and bialt mastoids. Patient followed Dr. Cuba previously and had tympanostomy tube in ear. Per Dr. Fam who saw pt in hospital there is currently no indication for acute intervention. It was planned to continue with a total of one week of antibiotics and then follow up outpatient for further eval. Patient was administered zosyn initially. It was planned to continue PO Augmentin for total 7 day. - Continue PO augmentin Chronic medical problems: Anemia, Pt has known hx of anemia. He is around his baseline. Double scope on May 19 showed polyps, diverticulosis, mixed hemorrhoidal disease, and erosive gastritis. Patient will follow in outpatient. BRANDEE on CKD Cr was 2.3 on admission today down to 1.8, stable. Looks to be back around his baseline. - continue to monitor and avoid nephrotoxic agents History of chronic medical problems: HTN, CAD, afib Last echo in showed normal left ventricular systolic function. Mild LVH. Moderate LAE. Moderate TR with mild Pulmonary hypertension RVSP at 45mmHg, Con't home reg We continued home medication. - Cardura 1mg daily - Amlodipine 10mg - Lopressor 50mg BID - ASA 81 - Statin - Diltiazem CD 180mg FC Chem ppx Diabetic diet Patient was discharged with recommendation below: Please follow-up with your PCP within one week of discharge. Please follow-up with your c architect within 1 week of discharge. Please follow-up with your ENT specialist within 1 week of discharge. Please take [facility] and [facility] if symptoms worsen. Problem List: 1. Diabetes 2. Otitis media Pain Ratin Pain Location: None Pain Goal: Pain 4 or less Pain Plan: Contnue current plan Tomorrow's Labs & Rationales: None DC today Discharge Plan Discharge Disposition: home Stable for Discharge? Yes Anticipated Discharge (Day): today Alina Barrett 05/27/17 1244: Attending MD Review Statement Attending Statement Attending MD Statement: examined this patient, discuss w/resident/PA/DOUBLE CORNER CUTTER, agreed w/resident/PA/DOUBLE CORNER CUTTER, discussed with family, reviewed EMR data (avail), discussed with nursing, discussed with case mgmt, reviewed images, amended to note Attending Assessment/Plan: Patient denies any new complaints. Insulin administration teaching provided. Diabetes education. Endocrinology follow up at discharge. Patient medically stable.
--- NOTE | 2017-05-27 07:51 | PN- Diabetes ---
Assessment/Plan Diabetes Assessment: The patient states he feels well. His fingerstick blood sugar before dinner last night was 182 and 186 at bedtime. The patient is on 16 units of Levemir twice a day as well as sliding scale NovoLog starting with 6 units of 80-150. Plan: Suggest continue the present insulin. If the patient is discharged she can go home on his present doses of insulin. He should be prescribed insulin pens both Levemir and NovoLog which are much easier to use. He also needs to be prescribed a box of pen needles 32-gauge. He can call the office for follow-up. Hopefully the pharmacy will teach him how to use the pen and if not he can stop by the office on the way home when we will try to accommodate him. Subjective Subjective: Feels okay Review of Systems Constitutional: Denies: chills, fever. Cardiovascular: Denies: chest pain. Respiratory: Denies: short of breath. Gastrointestinal: Denies: abdominal pain. Skin: Reports: no symptoms. Objective Last 24 Hrs of Vital Signs/I&O Vital Signs Date Time Temp Pulse Resp B/P B/P Pulse O2 O2 Flow FiO2 Mean Ox Delivery Rate 05/27 0705 97.5 80 18 144/84 95 05/26 2142 98.2 79 19 130/70 91 Room Air 05/26 2113 79 130/70 05/26 2050 94 Room Air Room Air 05/26 1600 91 Room Air 05/26 1333 98.3 62 20 136/74 91 Room Air 05/26 0917 96 Room Air Room Air Intake & Output 05/27 0800 05/27 0000 05/26 1600 Intake Total 240 860 920 Output Total 650 Balance 240 860 270 Intake, IV 20 20 Intake, Oral 240 840 900 Number 0 Bowel Movements Output, Urine 650 Vital Signs Date Time Temp Pulse Resp B/P B/P Pulse O2 O2 Flow FiO2 Mean Ox Delivery Rate 05/27 0705 97.5 80 18 144/84 95 05/26 2142 98.2 79 19 130/70 91 Room Air 05/26 2113 79 130/70 05/26 2050 94 Room Air Room Air 05/26 1600 91 Room Air 05/26 1333 98.3 62 20 136/74 91 Room Air 05/26 0917 96 Room Air Room Air Intake & Output 05/27 0800 05/27 0000 05/26 1600 Intake Total 240 860 920 Output Total 650 Balance 240 860 270 Intake, IV 20 20 Intake, Oral 240 840 900 Number 0 Bowel Movements Output, Urine 650 Physical Exam General Appearance: alert, awake, comfortable Head: normal appearance Neck: normal inspection Respiratory: normal breath sounds Cardiovascular: regular rate/rhythm Abdomen: normal bowel sounds Extremities: normal inspection Current Medications: Current Medications Sig/Ramya Start time Last Medication Dose Route Stop Time Status Admin Albuterol Sulfate 3 ML TID 05/23 2199 AC 05/26 INH 8 Albuterol Sulfate 2 PUF Q4-6 PRN PRN 05/23 2000 AC INH Amlodipine Besylate 10 MG DAILY 05/24 1000 AC 05/26 PO 0855 Amoxicillin/ 875 MG Q12 05/24 1048 AC 05/26 Clavulanate Potassium PO 211 Aspirin 81 MG DAILY 05/24 1000 AC 05/26 PO 0855 Atorvastatin Calcium 20 MG DAILY 05/24 1000 AC 05/26 PO 0855 Budesonide/ 2 PUF BID 05/23 2199 05/26 Formoterol Fumarate INH 2113 Diltiazem HCl 180 MG DAILY 05/24 1000 AC 05/26 PO 0855 Doxazosin Mesylate 1 MG DAILY 05/24 1000 AC 05/26 PO 0855 Heparin Sodium 5,000 UNIT Q8 05/25 0600 05/27 (Porcine) AL 0517 Insulin Aspart 2 UNITS .STK-MED ONE 05/26 0846 [facility] 05/26 0847 Insulin Aspart 0 AT BEDTIME 05/24 2199 05/25 AL 2201 Insulin Aspart 0 TIDAC 05/24 0800 05/26 AL 1649 Insulin Detemir 16 UNITS BID 05/26 2200 05/26 AL 2053 Insulin Detemir 2 UNITS ONCE ONE 05/26 0830 MA 05/26 AL 05/26 0831 0854 Insulin Detemir 14 UNITS BID 05/25 1000 MA 05/26 AL 0757 Melatonin 5 MG AT BEDTIME 05/24 2199 05/26 PO 2114 Metoprolol Tartrate 50 MG BID 05/23 2200 05/26 PO 2114 Omeprazole 40 MG DAILY AC 05/24 0700 05/27 PO 0517 Patient Medication 1 ED ONE ONE 05/26 1215 MA 05/26 Teaching ED 05/26 1216 1237 Polyethylene Glycol 17 GM DAILY PRN 05/25 0830 AC 05/26 PO 0854 Senna/Docusate Sodium 1 TAB BID PRN 05/25 0830 AC 05/26 PO 2114 Findings Pertinent Lab/Darnell Results: Laboratory Tests 05/27 0553 Chemistry Sodium Pending Potassium Pending Chloride Pending Carbon Dioxide Pending Anion Gap Pending BUN Pending Creatinine Pending BUN/Creatinine Ratio Pending
[2017-05-27 08:33] VITALS: BP 144/80
[2017-05-27] MEDS ORDERED: AMOX-CLAV 875-1 EACH PO (11:32)
[2017-05-27] MEDS ORDERED: LEVEMIR100 UNIT/1 SC (11:32)
[2017-05-27] MEDS ORDERED: NOVOLOG100 UNIT/2 SC ×2 (11:32)
== END 2017-05-27 15:10 | disposition home health service (06) | DRG 637 ==
LOC: ERH 14:39 → ERHI 16:36 → CRI 16:36 → EDBEDREQ 17:05 → ERHI 17:06 → ENRESERV 18:02 → ENTRNSPT 20:06 → EDTRNSPTSTS 20:09 → CMPTRNSPT 20:31 → CRI 20:50 → 2NB 05-24 23:25 → ENPENDDIS 05-27 12:06 → ENTRNSPT 05-27 14:31 → EDTRNSPT 05-27 15:05 → EDTRNSPTSTS 05-27 15:05 → 2NB 05-27 15:10 → CMPTRNSPT 05-27 15:31
PROVIDERS: Emergency Medicine; Radiology Vascular & Interventional Radiology; Student in an Organized Health Care Education/Training Program
DX: E11.00 Type 2 diabetes mellitus with hyperosmolarity without nonketotic hyperglycemic-hyperosmolar coma (NKHHC) (principal); G93.41 Metabolic encephalopathy; N18.4 Chronic kidney disease, stage 4 (severe); N17.9 Acute kidney failure, unspecified; J44.9 Chronic obstructive pulmonary disease, unspecified; H70.93 Unspecified mastoiditis, bilateral; I48.91 Unspecified atrial fibrillation; E11.65 Type 2 diabetes mellitus with hyperglycemia; I12.9 Hypertensive chronic kidney disease with stage 1 through stage 4 chronic kidney disease, or unspecified chronic kidney disease; E11.22 Type 2 diabetes mellitus with diabetic chronic kidney disease; I25.10 Atherosclerotic heart disease of native coronary artery without angina pectoris; Z95.1 Presence of aortocoronary bypass graft; E78.5 Hyperlipidemia, unspecified; H66.93 Otitis media, unspecified, bilateral; D64.9 Anemia, unspecified
CPT/HCPCS: 2NBSP; 84133; 84300; CCU; 36592; 71045; 76775; 80307; 81003; 82436; 82570; 93005; 93010; 96361; 96374; 99291; G0480; J0743; J1644; J1815; J3490